=== PATIENT | male | born 1970 | race Caucasian/White ===

== ENCOUNTER 2016-09-16 20:10 | Emergency (ER) ==
--- NOTE | 2016-09-16 22:06 | PROVIDER DOCUMENTATION ---
HPI-Headache - General Source: patient - History of Present Illness-Headache Headache Location: reports: other (left eye) Quality of Pain: reports: aching Severity: reports: mild Onset/Duration: reports: this morning Timing: reports: still present Headache History: reports: history of migraines Any recent trauma/injury?: reports: none Headache severity at the maximum: mild Headache Exacerbated by:: reports: light Associated Symptoms: reports: headache, nausea Similar Symptoms Previously?: Yes Recently seen or treated by another doctor?: Yes <Ally Merino - Last Filed: 09/16/16 22:08> <Darrel Bush - Last Filed: 09/16/16 23:54> - General Chief Complaint: Headache Stated Complaint: HEADACHE Time Seen by Provider: 09/16/16 22:01 Allergies/Adverse Reactions: Patient Allergies Allergy/AdvReac Type Severity Reaction Status Date / Time codeine [Codeine] Allergy Mild HIVES Verified 09/11/16 05:14 ondansetron HCl * AdvReac VOMITING Verified 09/11/16 05:14 [From Zofran (as hydrochloride)] Home Medications: Gabapentin [Neurontin] 300 mg PO 4XDAY 09/23/15 Zonisamide 300 mg PO QPM 11/06/15 Mirtazapine [Remeron] 30 mg PO QHS 12/19/15 Alprazolam [Xanax Xr] 2 mg PO AC + HS 05/18/16 Lorazepam [Ativan] 1 mg PO DAILY PRN 05/21/16 Quetiapine Fumarate [Seroquel] 100 mg PO QHS 05/21/16 Isosorbide Dinitrate 30 mg PO QAM 08/20/16 Nitroglycerin [Nitrostat] 0.3 mg SL PRN PRN 08/20/16 Butalb/Acetaminophen/Caffeine [Fioricet 50-300-40 mg Capsule] 1 - 2 cap PO PRN PRN 09/05/16 Fluoxetine HCl [Prozac] 2 tab PO DAILY 09/07/16 - History of Present Illness-Headache Nature of Presenting Problem: 46 year old M presents to the ED with a cc of a headache with an onset of this morning. PT states that he took a Fiorecet this morning with no relief. PT states that he went to a walk in clinic and was given a shot of Tordol and Phenergan with no relief. Pt states that he took another Fiorecet with still no relief. PT c/o nausea and photophobia. (Ally Merino) Review of Systems - Adult - REVIEW OF SYSTEMS - ADULT Constitutional: denies: chills, fever Eyes: denies: blurred vision, double vision Ears, Nose, Mouth & Throat: reports: no symptoms reported Cardiovascular: denies: chest pain, palpitations Respiratory: denies: cough, shortness of breath Gastrointestinal: reports: nausea. denies: vomiting Genitourinary: reports: no symptoms reported Musculoskeletal: denies: muscle aches, muscle weakness Integumentary: reports: no symptoms reported Neurological: reports: headache/migraines. denies: dizziness/vertigo Psychiatric: reports: no symptoms reported Endocrine: reports: no symptoms reported Hematologic/Lymphatic: reports: no symptoms reported Allergic/Immunologic: reports: no symptoms reported All Other Systems: Reviewed and Negative <Ally Merino - Last Filed: 09/16/16 22:08> Past History - Adult - PAST MEDICAL HISTORY-ADULT Review of Records: reports: Nursing Assessment Review, Medications Reviewed Major Childhood Illnesses: reports: denies history Cardiovascular: reports: angina, CAD, HTN, hyperlipidemia Respiratory: reports: sleep apnea (but not wearing his C-pap) Gastrointestinal: reports: GERD Genitourinary: reports: kidney stones Musculoskeletal: reports: chronic pain (back), intervertebral disc disease Neurological: reports: headaches/migraines, Seizures/Epilepsy, TIA Psychiatric: reports: anxiety, depression, ptsd, other (panic attacks; somatization disorder; major depressive disorder) Endocrine/Immune: reports: Diabetes (diet controlled), thyroid disorder ( hypothyroid) Other Conditions: reports: MRSA Additional History: Frequent ER visits - PRIOR SURGERIES/PROCEDURES Surgical/Procedure History: reports: tonsillectomy, orthopedic (extremity) ( right should, left shoulder, right knee, right 2nd toe Sx), other (cardiac cath twice. arthroscopy ) - IMMUNIZATION STATUS Childhood Immunizations: See Nurse Assessment Flu Vaccine: See Nurse Assessment - FAMILY HISTORY Family History: reviewed, not pertinent - SOCIAL HISTORY Smoking: chew Substance Use: none/never Alcohol Use Frequency: never <Ally Merino - Last Filed: 09/16/16 22:08> Physical Exam- Neurological - Physical Exam-Neuro Initial Vital Signs Reviewed: Yes General Appearance: appears well, alert, no apparent distress Eye Exam: left eye: photophobia, bilateral eye: normal inspection, PERRL, EOMI Head Injury: no evidence of injury Respiratory: chest non-tender, lungs clear, normal breath sounds Cardiovascular: normal peripheral pulses, regular rate, rhythm, no edema Extremity: normal inspection bell maker Exam: normal hearing, normal speech, PERRL Motor/Sensory: no motor deficit, no sensory deficit, no pronator drift, negative Babinski's sign Neurologic: bell maker II-XII nml as tested, no motor/sensory deficits Integumentary: normal color, normal turgor, warm/dry Psych/Mental Status: AL, normal mood/affect, normal thought content, normal thought process, oriented x 3 <Ally Merino - Last Filed: 09/16/16 22:08> Progress <Ally eMrino - Last Filed: 09/16/16 22:08> - REASSESSMENT Reassessment #1 Time Reassessed: 23:53 Status: improving <Darrel Bush - Last Filed: 09/16/16 23:54> - PLAN OF CARE/RESULTS Progress/Plan/Lab Results: Orders Category Date Time Status 0.9% Sodium Chloride Inj [Ns] 50 ml Med 09/16/16 22:32 Discontinued .ROUTE As Directed 0.9% Sodium Chloride Inj [Ns] 500 ml Med 09/16/16 22:07 Discontinued IV 999 mls/hr Chlorpromazine [Thorazine] 25 mg Med 09/16/16 23:02 Discontinued 0.9% Sodium Chloride Inj [Ns] 25 ml IV NOW Diphenhydramine [Benadryl] Med 09/16/16 22:07 Discontinued 25 mg IV NOW ONE Hydromorphone [Dilaudid] Med 09/16/16 23:51 Discontinued 1 mg IV NOW ONE Ketorolac [Toradol] Med 09/16/16 22:07 Discontinued 30 mg IV NOW ONE Prochlorperazine [Compazine] Med 09/16/16 22:07 Discontinued 10 mg IV NOW ONE Vital Signs Temp Pulse Resp BP Pulse Ox 09/16/16 20:28 96.0 F L 96 H 18 145/94 99 codeine [Codeine] Allergy (Mild, Verified 09/11/16 05:14) HIVES ondansetron HCl * [From Zofran (as hydrochloride)] Adverse Reaction (Verified 05:14) VOMITING Gabapentin [Neurontin] 300 mg PO 4XDAY 09/23/15 Zonisamide 300 mg PO QPM 11/06/15 Mirtazapine [Remeron] 30 mg PO QHS 12/19/15 Alprazolam [Xanax Xr] 2 mg PO AC + HS 05/18/16 Lorazepam [Ativan] 1 mg PO DAILY PRN 05/21/16 Quetiapine Fumarate [Seroquel] 100 mg PO QHS 05/21/16 Isosorbide Dinitrate 30 mg PO QAM 08/20/16 Nitroglycerin [Nitrostat] 0.3 mg SL PRN PRN 08/20/16 Butalb/Acetaminophen/Caffeine [Fioricet 50-300-40 mg Capsule] 1 - 2 cap PO PRN PRN 09/05/16 Fluoxetine HCl [Prozac] 2 tab PO DAILY 09/07/16 Ketorolac [Toradol] 10 mg PO Q6H PRN PRN #7 tablet 09/09/16 Promethazine [Phenergan] 25 mg PO Q6H PRN PRN #20 tablet 09/09/16 Sucralfate [Carafate Liquid] 1 tbs PO Q6HR PRN #8 oz 09/10/16 Lorazepam [Ativan] 0.5 mg PO BID #30 tablet 09/11/16 Potassium Chloride [K-Tab ER] 20 meq PO DAILY #30 tablet.er 09/11/16 (Darrel Bush) Departure <Ally Merino - Last Filed: 09/16/16 22:08> - Departure Time of Disposition Order: 23:53 Certified Medical Emergency: Emergent <Darrel Bush - Last Filed: 09/16/16 23:54> - Departure DIAGNOSIS: Migraine headache Disposition: HOME 01 Condition: Good Additional Instructions: ED Follow Up Instructions: You have been treated by a care provider in the Emergency Department. These instructions are being provided to you so you can have an understanding of how to care for yourself upon discharge. Upon discharge from the Emergency Department, you are responsible for making arrangements for follow-up care by a physician of your choice. Take all prescribed medications as directed. Return to the Emergency Department immediately for any new or worsening symptoms. You may call the Physician Referral phone number at [phone] to obtain a list of Physicians who are taking new patients. Attestation - Scribe Verification/Attestation Scribe:: Ally Merino Acting as Scribe for:: Darrel Bush Scribe documention review:: This chart was documented by a scribe and accurately reflects the service the provider performed and the decisions made by the provider. <Ally Merino - Last Filed: 09/16/16 22:08> Physician Attestation - Physician Attestation I, the provider, attest to the following statement:: Darrel Bush Physician documentation Attestation:: This documentation recorded by the scribe accurately reflects the service I personally performed and the decisions made by me. <Ally Merino - Last Filed: 09/16/16 22:08>
[2016-09-16] MEDS ORDERED: TORADOL IV ONE (22:07)
[2016-09-16] MEDS ORDERED: BENADRYL IV ONE (22:07)
[2016-09-16] MEDS ORDERED: COMPAZINE IV ONE (22:07)
[2016-09-16] MEDS ORDERED: NS 500 ML IV ONE (22:07)
[2016-09-16] MEDS ORDERED: NS 100 ML ONE (22:32)
[2016-09-16] MEDS ORDERED: THORAZINE 25 MG in NS 25 ML IV ONE (23:02)
[2016-09-16] MEDS ORDERED: DILAUDID IV ONE (23:51)
[2016-09-17] MEDS ORDERED: THORAZINE ONE (00:21)
[2016-09-17 00:25] VITALS: BP 132/87
== END 2016-09-17 00:30 | disposition home or self-care (01) ==
LOC: P.ED 20:10
DX: G43.909 Migraine, unspecified, not intractable, without status migrainosus (principal); R51 Headache; R11.0 Nausea; H53.149 Visual discomfort, unspecified; I20.9 Angina pectoris, unspecified; I25.10 Atherosclerotic heart disease of native coronary artery without angina pectoris; I10 Essential (primary) hypertension; E78.5 Hyperlipidemia, unspecified; G89.29 Other chronic pain; M54.9 Dorsalgia, unspecified; R56.9 Unspecified convulsions; E11.9 Type 2 diabetes mellitus without complications; F17.220 Nicotine dependence, chewing tobacco, uncomplicated; Z79.899 Other long term (current) drug therapy; Z87.442 Personal history of urinary calculi; Z86.73 Personal history of transient ischemic attack (TIA), and cerebral infarction without residual deficits; Z86.14 Personal history of Methicillin resistant Staphylococcus aureus infection
CPT/HCPCS: 96361; 96374; 96375; J0780; J1170; J1200; J1885; J3230; J7040

== ENCOUNTER 2016-09-18 18:12 | Emergency (ER) ==
[2016-09-18] MEDS ORDERED: COMPAZINE IV ONE (19:08)
[2016-09-18] MEDS ORDERED: BENADRYL IV ONE (19:09)
[2016-09-18] MEDS ORDERED: THORAZINE 25 MG in NS 25 ML IV ONE ×2 (19:09→19:57)
[2016-09-18] MEDS ORDERED: TORADOL IV ONE (19:09)
[2016-09-18] MEDS ORDERED: NS 500 ML IV ONE (19:10)
[2016-09-18] MEDS ORDERED: THORAZINE ONE (19:16)
--- NOTE | 2016-09-18 19:19 | PROVIDER DOCUMENTATION ---
HPI-Headache - General Chief Complaint: Headache Stated Complaint: MIGRAINE Time Seen by Provider: 09/18/16 19:05 Source: patient Allergies/Adverse Reactions: Patient Allergies Allergy/AdvReac Type Severity Reaction Status Date / Time codeine [Codeine] Allergy Mild HIVES Verified 09/11/16 05:14 ondansetron HCl * AdvReac VOMITING Verified 09/11/16 05:14 [From Zofran (as hydrochloride)] Home Medications: Gabapentin [Neurontin] 300 mg PO 4XDAY 09/23/15 Zonisamide 300 mg PO QPM 11/06/15 Mirtazapine [Remeron] 30 mg PO QHS 12/19/15 Alprazolam [Xanax Xr] 2 mg PO AC + HS 05/18/16 Lorazepam [Ativan] 1 mg PO DAILY PRN 05/21/16 Quetiapine Fumarate [Seroquel] 100 mg PO QHS 05/21/16 Isosorbide Dinitrate 30 mg PO QAM 08/20/16 Nitroglycerin [Nitrostat] 0.3 mg SL PRN PRN 08/20/16 Butalb/Acetaminophen/Caffeine [Fioricet 50-300-40 mg Capsule] 1 - 2 cap PO PRN PRN 09/05/16 Fluoxetine HCl [Prozac] 2 tab PO DAILY 09/07/16 - History of Present Illness-Headache Nature of Presenting Problem: 46 yo M presents to the ER with complaint of headache since his AM. Pt states the pain is behind his right eye and feels like an ice pick. Pt also complains of blurry vision and has a hx of headaches similar to these. Headache Location: reports: occipital (behind right eye) Quality of Pain: reports: sharp Severity: reports: mild Onset/Duration: reports: this afternoon Timing: reports: still present Headache Context: reports: nothing Headache History: reports: history of migraines Review of Systems - Adult - REVIEW OF SYSTEMS - ADULT Constitutional: denies: chills, fever Eyes: reports: no symptoms reported Ears, Nose, Mouth & Throat: reports: no symptoms reported Cardiovascular: denies: chest pain, palpitations Respiratory: denies: cough, shortness of breath Gastrointestinal: denies: abdominal pain, nausea, vomiting Genitourinary: reports: no symptoms reported Musculoskeletal: denies: back pain, neck pain Integumentary: reports: no symptoms reported Neurological: reports: no symptoms reported Psychiatric: reports: no symptoms reported Endocrine: reports: no symptoms reported Hematologic/Lymphatic: reports: no symptoms reported Allergic/Immunologic: reports: no symptoms reported All Other Systems: Reviewed and Negative Past History - Adult - PAST MEDICAL HISTORY-ADULT Review of Records: reports: Old Records Reviewed, Nursing Assessment Review, Medications Reviewed Major Childhood Illnesses: reports: denies history Cardiovascular: reports: angina, CAD, HTN, hyperlipidemia Respiratory: reports: sleep apnea (but not wearing his C-pap) Gastrointestinal: reports: GERD Obstetrical/Gynecological: reports: denies history Genitourinary: reports: kidney stones Musculoskeletal: reports: chronic pain (back), intervertebral disc disease Neurological: reports: headaches/migraines, Seizures/Epilepsy, TIA Psychiatric: reports: anxiety, depression, ptsd, other (panic attacks; somatization disorder; major depressive disorder) Endocrine/Immune: reports: Diabetes (diet controlled), thyroid disorder ( hypothyroid) Other Conditions: reports: MRSA Additional History: Frequent ER visits - PRIOR SURGERIES/PROCEDURES Surgical/Procedure History: reports: tonsillectomy, orthopedic (extremity) ( right should, left shoulder, right knee, right 2nd toe Sx), other (cardiac cath twice. arthroscopy ) - IMMUNIZATION STATUS Childhood Immunizations: See Nurse Assessment Flu Vaccine: See Nurse Assessment - FAMILY HISTORY Family History: reviewed, not pertinent Physical Exam- Neurological - Physical Exam-Neuro Initial Vital Signs Reviewed: Yes General Appearance: appears well, alert Eye Exam: right eye: photophobia HENMT: normocephalic/atraumatic, moist mucous membranes Head Injury: no evidence of injury Neck: non-tender, full range of motion Respiratory: chest non-tender, lungs clear Abdominal Exam: normal bowel sounds, soft Extremity: normal range of motion, normal gait Integumentary: normal color, normal turgor Progress - PLAN OF CARE/RESULTS Progress/Plan/Lab Results: Orders Category Date Time Status 0.9% Sodium Chloride Inj [Ns] 500 ml Med 09/18/16 19:10 Active IV 999 mls/hr Chlorpromazine [Thorazine] Med 09/18/16 19:16 Discontinued 50 mg .ROUTE .STK-MED ONE Chlorpromazine [Thorazine] 25 mg Med 09/18/16 19:09 Active 0.9% Sodium Chloride Inj [Ns] 25 ml IV NOW Diphenhydramine [Benadryl] Med 09/18/16 19:09 Discontinued 50 mg IV NOW ONE Ketorolac [Toradol] Med 09/18/16 19:09 Discontinued 30 mg IV NOW ONE Prochlorperazine [Compazine] Med 09/18/16 19:08 Discontinued 10 mg IV NOW ONE Vital Signs Temp Pulse Resp BP Pulse Ox 09/18/16 18:19 98.2 F 100 H 18 151/89 99 codeine [Codeine] Allergy (Mild, Verified 09/11/16 05:14) HIVES ondansetron HCl * [From Zofran (as hydrochloride)] Adverse Reaction (Verified 05:14) VOMITING Gabapentin [Neurontin] 300 mg PO 4XDAY 09/23/15 Zonisamide 300 mg PO QPM 11/06/15 Mirtazapine [Remeron] 30 mg PO QHS 12/19/15 Alprazolam [Xanax Xr] 2 mg PO AC + HS 05/18/16 Lorazepam [Ativan] 1 mg PO DAILY PRN 05/21/16 Quetiapine Fumarate [Seroquel] 100 mg PO QHS 05/21/16 Isosorbide Dinitrate 30 mg PO QAM 08/20/16 Nitroglycerin [Nitrostat] 0.3 mg SL PRN PRN 08/20/16 Butalb/Acetaminophen/Caffeine [Fioricet 50-300-40 mg Capsule] 1 - 2 cap PO PRN PRN 09/05/16 Fluoxetine HCl [Prozac] 2 tab PO DAILY 09/07/16 Ketorolac [Toradol] 10 mg PO Q6H PRN PRN #7 tablet 09/09/16 Promethazine [Phenergan] 25 mg PO Q6H PRN PRN #20 tablet 09/09/16 Sucralfate [Carafate Liquid] 1 tbs PO Q6HR PRN #8 oz 09/10/16 Lorazepam [Ativan] 0.5 mg PO BID #30 tablet 09/11/16 Potassium Chloride [K-Tab ER] 20 meq PO DAILY #30 tablet.er 09/11/16 Vital Signs Temp Pulse Resp BP Pulse Ox 09/18/16 18:19 98.2 F 100 H 18 151/89 99 codeine [Codeine] Allergy (Mild, Verified 09/11/16 05:14) HIVES ondansetron HCl * [From Zofran (as hydrochloride)] Adverse Reaction (Verified 05:14) VOMITING Gabapentin [Neurontin] 300 mg PO 4XDAY 09/23/15 Zonisamide 300 mg PO QPM 11/06/15 Mirtazapine [Remeron] 30 mg PO QHS 12/19/15 Alprazolam [Xanax Xr] 2 mg PO AC + HS 05/18/16 Lorazepam [Ativan] 1 mg PO DAILY PRN 05/21/16 Quetiapine Fumarate [Seroquel] 100 mg PO QHS 05/21/16 Isosorbide Dinitrate 30 mg PO QAM 08/20/16 Nitroglycerin [Nitrostat] 0.3 mg SL PRN PRN 08/20/16 Butalb/Acetaminophen/Caffeine [Fioricet 50-300-40 mg Capsule] 1 - 2 cap PO PRN PRN 09/05/16 Fluoxetine HCl [Prozac] 2 tab PO DAILY 09/07/16 Ketorolac [Toradol] 10 mg PO Q6H PRN PRN #7 tablet 09/09/16 Promethazine [Phenergan] 25 mg PO Q6H PRN PRN #20 tablet 09/09/16 Sucralfate [Carafate Liquid] 1 tbs PO Q6HR PRN #8 oz 09/10/16 Lorazepam [Ativan] 0.5 mg PO BID #30 tablet 09/11/16 Potassium Chloride [K-Tab ER] 20 meq PO DAILY #30 tablet.er 09/11/16 Departure - Departure Time of Disposition Order: 20:19 DIAGNOSIS: Migraine Qualifiers: Migraine type: unspecified Status migrainosus presence: without status migrainosus Intractability: not intractable Qualified Code(s): G43.909 - Migraine, unspecified, not intractable, without status migrainosus Disposition: HOME 01 Certified Medical Emergency: Emergent Condition: Good Additional Instructions: ED Follow Up Instructions: You have been treated by a care provider in the Emergency Department. These instructions are being provided to you so you can have an understanding of how to care for yourself upon discharge. Upon discharge from the Emergency Department, you are responsible for making arrangements for follow-up care by a physician of your choice. Take all prescribed medications as directed. Return to the Emergency Department immediately for any new or worsening symptoms. You may call the Physician Referral phone number at [phone] to obtain a list of Physicians who are taking new patients. Referrals: Araseli Andrade MD [Primary Care Provider] - Attestation - Scribe Verification/Attestation Scribe:: Noe Gorman Acting as Scribe for:: Darrel Bush Scribe documention review:: This chart was documented by a scribe and accurately reflects the service the provider performed and the decisions made by the provider.
[2016-09-18] MEDS ORDERED: NUBAIN IV ONE (20:19)
[2016-09-18 20:58] VITALS: BP 125/082
== END 2016-09-18 20:54 | disposition home or self-care (01) ==
LOC: P.ED 18:12
DX: G43.909 Migraine, unspecified, not intractable, without status migrainosus (principal); R51 Headache; H53.8 Other visual disturbances; I20.9 Angina pectoris, unspecified; I25.10 Atherosclerotic heart disease of native coronary artery without angina pectoris; I10 Essential (primary) hypertension; E78.5 Hyperlipidemia, unspecified; G89.29 Other chronic pain; M54.9 Dorsalgia, unspecified; R56.9 Unspecified convulsions; E11.9 Type 2 diabetes mellitus without complications; F41.9 Anxiety disorder, unspecified; F32.9 Major depressive disorder, single episode, unspecified; F43.10 Post-traumatic stress disorder, unspecified; Z79.899 Other long term (current) drug therapy; Z86.73 Personal history of transient ischemic attack (TIA), and cerebral infarction without residual deficits; Z86.14 Personal history of Methicillin resistant Staphylococcus aureus infection
CPT/HCPCS: 96361; 96374; 96375; 96376; J0780; J1200; J1885; J2300; J3230; J7040

== ENCOUNTER 2016-11-11 11:33 | Emergency (ER) ==
[2016-11-11 11:38] VITALS: BP 150/99
[2016-11-11] MEDS ORDERED: TORADOL IM ONE (11:54)
[2016-11-11] MEDS ORDERED: NORFLEX IM ONE (11:54)
--- NOTE | 2016-11-11 11:59 | PROVIDER DOCUMENTATION ---
HPI-Musculoskeletal Pain/Inj - GENERAL Chief Complaint: Back Pain Stated Complaint: "I WRENCHED MY BACK" Time Seen by Provider: 11/11/16 11:55 Source: patient Unable to obtain history due to:: urgency - HX OF PRESENT ILLNESS-MUSKULOSKELTAL Nature of Presenting Problem: 46 yom presents with lower back pain. Pt states, "My father was admitted to Hospital on Tuesday. I have been helping the nurses lift him and roll him to take care of him." Pt denies any loss of bowel or bladder. Pt has numbness to Right lower extremity with the pain. SI Joint pain on palpation. Quality of Pain: reports: aching Severity in ED: moderate Onset/Duration: abrupt Timing: still present, getting worse Modifying Factors: improves with: nothing Any recent injury?: No Similar Symptoms Previously?: No Recently seen or treated by another doctor?: No Review of Systems - Adult - REVIEW OF SYSTEMS - ADULT Constitutional: reports: see HPI. denies: no symptoms reported, chills, fever, fatique, night sweats, weight gain, weight loss, other Eyes: reports: no symptoms reported. denies: see HPI, discharge, dry eyes, decreased vision, blurred vision, double vision, eye pain, redness, other Ears, Nose, Mouth & Throat: reports: no symptoms reported. denies: see HPI, ear discharge, ear pain, hearing loss, tinnitus, epistaxis, sinus problem, nose pain, loose teeth, mouth/dental pain, mouth swelling, hoarseness, throat pain, throat swelling, other Cardiovascular: reports: no symptoms reported. denies: see HPI, chest pain, edema, heart murmur, irregular heart rate, orthopnea, palpitations, poor circulation, PND, syncope, other Respiratory: reports: no symptoms reported. denies: see HPI, chronic cough, cough, dyspnea on exertion, excessive sputum production, hemoptysis, pleurisy, shortness of breath, wheezing, other Gastrointestinal: reports: no symptoms reported. denies: see HPI, abdominal pain, hematemesis, constipation, diarrhea, difficulty swallowing, frequent heartburn, nausea, poor appetite, rectal bleeding, vomiting, other Genitourinary: reports: no symptoms reported. denies: see HPI, dysuria, discharge, frequency, flank pain, frequent UTI's, hematuria, hesitency, incontinence, urinary retention, urgency, other Musculoskeletal: reports: see HPI, back pain. denies: no symptoms reported, bone pain, frequent leg cramps, joint pain, joint swelling, muscle aches, muscle weakness, neck pain, other Integumentary: reports: no symptoms reported. denies: see HPI, hives, hair loss , itching, mole changes, nail changes, rash, skin sores/ulcer, skin thickening, other Neurological: reports: no symptoms reported. denies: see HPI, ataxia, dizziness /vertigo, headache/migraines, loss of balance, numbness, paresthesia, seizure, slurred speech, syncope, tremors, other Psychiatric: reports: no symptoms reported. denies: see HPI, anxiety, anti- depressant use, alcohol/drug dependence, depression, emotional problems, insomnia, panic attacks, suicidal thoughts, other All Other Systems: Reviewed and Negative Past History - Adult - PAST MEDICAL HISTORY-ADULT Review of Records: reports: Old Records Reviewed, Nursing Assessment Review, Medications Reviewed, Social history reviewed & non-contributory. Major Childhood Illnesses: reports: denies history Cardiovascular: reports: angina, CAD, HTN, hyperlipidemia Respiratory: reports: sleep apnea (but not wearing his C-pap) Gastrointestinal: reports: GERD Obstetrical/Gynecological: reports: denies history Genitourinary: reports: kidney stones Musculoskeletal: reports: chronic pain (back), intervertebral disc disease Neurological: reports: headaches/migraines, Seizures/Epilepsy, TIA Psychiatric: reports: anxiety, depression, ptsd, other (panic attacks; somatization disorder; major depressive disorder) Endocrine/Immune: reports: Diabetes (diet controlled), thyroid disorder ( hypothyroid) Other Conditions: reports: MRSA Additional History: Frequent ER visits - PRIOR SURGERIES/PROCEDURES Surgical/Procedure History: reports: tonsillectomy, orthopedic (extremity) ( right should, left shoulder, right knee, right 2nd toe Sx), other (cardiac cath twice. arthroscopy ) - IMMUNIZATION STATUS Childhood Immunizations: See Nurse Assessment Flu Vaccine: See Nurse Assessment - FAMILY HISTORY Family History: reviewed, not pertinent Physical Exam-Injury Related - Physical Exam-Injury Related Initial Vital Signs Reviewed: Yes General Appearance: appears well, alert, no apparent distress. negative: mild distress, moderate distress, severe distress, cachetic, obese, thin, anxious, lethargic, slow to respond, obtunded, combative, other Immobilization?: negative: backboard, C-collar, applied in ED, applied [place] [place] Eyes: PERRL/EOMI, pink conjunctivae. negative: fundi clear, no AV nicking, anisocoria, conjuctival exudate, EOM palsy, meningismus, pale conjunctivae, photophobia, sclera injected, scleral icterus, subconjunctival hemorrhage, sunken eyes, other Head, Ears, Nose, Mouth & Throat: normocephalic/atraumatic, moist mucous membranes, normal ENT inspection, TMs normal, pharynx normal. negative: angioedema, dental decay, hearing deficit, pharyngeal erythema, tonsillar exudate, TM abnormal, TM obscurred by cerumen, frontal tenderness, maxillary tenderness, other Neck: non-tender, full range of motion, supple, normal inspection. negative: pain with axial compression, Brudzinski's sign, carotid bruit, C-spine tenderness, decresed ROM, ecchymosis, limited range of motion, lymphadenopathy, muscle spasm, nexus criteria negative, pain on movement, subcutaneous emphysema , swelling, trachial deviation, tender lateral, tender midline, thyromegaly, vertebral point tenderness, other Respiratory: chest non-tender, lungs clear, normal breath sounds, no pleuratic chest pain, no respiratory distress, no accessory muscle use. negative: respiratory distress, decreased breath sounds, accessory muscle use, crackles, rales, rhonchi, stridor, wheezing, dull on percussion, prolonged expiration, pain on inspiration, pleural rub, retractions, splinting, decreased rate, increased rate, crepitus, ecchymosis, flail chest, palpable fracture, paradoxical movements, rib tenderness, seat belt bruising, tenderness, other Cardiovascular: normal peripheral pulses, regular rate, rhythm, no edema, no gallop, no JVD, no murmur. negative: JVD, bradycardia, tachycardia, diastolic murmur, systolic murmur, gallop/S3, gallop/S4, extra beats, friction rub, irregularly irregular, PMI displaced laterally, other Abdominal Exam: normal bowel sounds, non tender, soft, no organomegaly, no pulsatile mass. negative: abdominal bruit, abnormal bowel sounds, distended, guarding, rigid, rebound, tenderness, hernia, mass, hepatomegaly, spleenomegaly , McBurney's point tenderness, Luis's sign, obturator sign, prominent aortic pulsations, psoas, Rovsing's sign, other Male Genitalia: deferred Lymphatic: no adenopathy. negative: axilla node tender, cervical node tenderness, inguinal node tender, enlargement, striations, streaking, other Back Exam: normal inspection, no CVA tenderness, muscle spasm, vertebral tenderness. negative: no vertebral tenderness, CVA tenderness, decreased range of motion, ecchymosis, kyphosis, lordosis, scoliosis, swelling, other Extremity: normal range of motion, non-tender, normal gait, normal inspection, no pedal edema, no calf tenderness, normal capillary refill Progress - PLAN OF CARE/RESULTS Progress/Plan/Lab Results: Orders Category Date Time Status Ketorolac [Toradol] Med 11/11/16 11:54 Discontinued 60 mg IM NOW ONE Orphenadrine [Norflex] Med 11/11/16 11:54 Discontinued 60 mg IM NOW ONE Vital Signs Temp Pulse Resp BP Pulse Ox 11/11/16 11:33 98 F 96 H 18 150/99 100 codeine [Codeine] Allergy (Mild, Verified 09/11/16 05:14) HIVES ondansetron HCl * [From Zofran (as hydrochloride)] Adverse Reaction (Verified 05:14) VOMITING Gabapentin [Neurontin] 300 mg PO 4XDAY 09/23/15 Zonisamide 300 mg PO QPM 11/06/15 Mirtazapine [Remeron] 30 mg PO QHS 12/19/15 Alprazolam [Xanax Xr] 2 mg PO AC + HS 05/18/16 Lorazepam [Ativan] 1 mg PO DAILY PRN 05/21/16 Quetiapine Fumarate [Seroquel] 100 mg PO QHS 05/21/16 Isosorbide Dinitrate 30 mg PO QAM 08/20/16 Nitroglycerin [Nitrostat] 0.3 mg SL PRN PRN 08/20/16 Butalb/Acetaminophen/Caffeine [Fioricet 50-300-40 mg Capsule] 1 - 2 cap PO PRN PRN 09/05/16 Fluoxetine HCl [Prozac] 2 tab PO DAILY 09/07/16 Ketorolac [Toradol] 10 mg PO Q6H PRN PRN #7 tablet 09/09/16 Promethazine [Phenergan] 25 mg PO Q6H PRN PRN #20 tablet 09/09/16 Sucralfate [Carafate Liquid] 1 tbs PO Q6HR PRN #8 oz 09/10/16 Lorazepam [Ativan] 0.5 mg PO BID #30 tablet 09/11/16 Potassium Chloride [K-Tab ER] 20 meq PO DAILY #30 tablet.er 09/11/16 Acetaminophen/Diphenhydramine [Percogesic 325-12.5 mg Tablet] 1 each PO BID #14 tablet 09/28/16 Cyclobenzaprine [Flexeril] 10 mg PO TID PRN #10 tablet 11/11/16 Ketorolac [Toradol] 10 mg PO Q6H PRN PRN #14 tablet 11/11/16 TYPE 2 DIABETES MELLITUS WITHOUT COMPLICATIONS (11/11/16) HYPERLIPIDEMIA, UNSPECIFIED (11/11/16) OTHER CHRONIC PAIN (11/11/16) ESSENTIAL (PRIMARY) HYPERTENSION (11/11/16) ATHSCL HEART DISEASE OF [place] CORONARY ARTERY W/O ANG PCTRS (11/11/16) SACROCOCCYGEAL DISORDERS, NOT ELSEWHERE CLASSIFIED (11/11/16) LUMBAGO WITH SCIATICA, RIGHT SIDE (11/11/16) LOW BACK PAIN (11/11/16) PAIN IN RIGHT LEG (11/11/16) ANESTHESIA OF SKIN (11/11/16) PERSONAL HISTORY OF METHICILLIN RESIS STAPH INFECTION (11/11/16) PRSNL HX OF TIA (TIA), AND CEREB INFRC W/O RESID DEFICITS (11/11/16) PERSONAL HISTORY OF URINARY CALCULI (11/11/16) Departure - Departure Time of Disposition Order: 11:56 DIAGNOSIS: Low back pain Qualifiers: Chronicity: acute Back pain laterality: unspecified Sciatica presence: with sciatica Sciatica laterality: sciatica of right side Qualified Code(s): M54.41 - Lumbago with sciatica, right side Disposition: HOME 01 Certified Medical Emergency: Emergent Condition: Stable Additional Instructions: ED Follow Up Instructions: You have been treated by a care provider in the Emergency Department. These instructions are being provided to you so you can have an understanding of how to care for yourself upon discharge. Upon discharge from the Emergency Department, you are responsible for making arrangements for follow-up care by a physician of your choice. Take all prescribed medications as directed. Return to the Emergency Department immediately for any new or worsening symptoms. You may call the Physician Referral phone number at [phone] to obtain a list of Physicians who are taking new patients. Prescriptions: Cyclobenzaprine [Flexeril] 10 mg PO TID PRN #10 tablet PRN Reason: muscle spasms Ketorolac [Toradol] 10 mg PO Q6H PRN PRN #14 tablet PRN Reason: Pain Referrals: Araseli Andrade MD [Primary Care Provider] - Forms: Return to School/Parent Work Instructions: Cyclobenzaprine tablets, Back Pain, Adult, Ketorolac tablets Attestation - Physician/ LOLY Attestation Patient care was provided by Advanced Practice Provider:: Yes Advanced Practice Provider:: Shaheen Ornelas Advanced Practice Provider documentation review:: The Mid-level provider documentation, treatment plan and medical decision making was reviewed by the physician who agrees with all treatment and medical decision making by the P. Physician Attestation - Physician Attestation I, the provider, attest to the following statement:: Shaheen Ornelas Physician documentation Attestation:: This documentation recorded by the scribe accurately reflects the service I personally performed and the decisions made by me.
== END 2016-11-11 12:38 | disposition home or self-care (01) ==
LOC: P.ED 11:33
DX: M54.41 Lumbago with sciatica, right side (principal); R20.0 Anesthesia of skin; M79.604 Pain in right leg; M53.3 Sacrococcygeal disorders, not elsewhere classified; I25.10 Atherosclerotic heart disease of native coronary artery without angina pectoris; I10 Essential (primary) hypertension; E78.5 Hyperlipidemia, unspecified; G89.29 Other chronic pain; E11.9 Type 2 diabetes mellitus without complications; Z87.442 Personal history of urinary calculi; Z86.73 Personal history of transient ischemic attack (TIA), and cerebral infarction without residual deficits; Z86.14 Personal history of Methicillin resistant Staphylococcus aureus infection
CPT/HCPCS: 96372; J1885; J2360

== ENCOUNTER 2016-11-13 19:28 | Emergency (ER) ==
[2016-11-13] MEDS ORDERED: ATIVAN IM ONE (19:51)
--- NOTE | 2016-11-13 19:57 | PROVIDER DOCUMENTATION ---
HPI-General Adult - General Chief Complaint: Seizure Stated Complaint: I feel like Im going to have a seizure Time Seen by Provider: 11/13/16 19:52 Source: patient Allergies/Adverse Reactions: Patient Allergies Allergy/AdvReac Type Severity Reaction Status Date / Time codeine [Codeine] Allergy Mild HIVES Verified 09/11/16 05:14 ondansetron HCl * AdvReac VOMITING Verified 09/11/16 05:14 [From Zofran (as hydrochloride)] Home Medications: Home Medication List Medication Instructions Recorded Confirmed Last Taken Type Gabapentin [Neurontin] 300 mg PO 4XDAY 09/23/15 09/11/16 1 Day Ago History Zonisamide 300 mg PO QPM 11/06/15 09/11/16 1 Day Ago History Mirtazapine [Remeron] 30 mg PO QHS 12/19/15 09/11/16 1 Day Ago History Alprazolam [Xanax Xr] 2 mg PO AC + HS 05/18/16 09/11/16 1 Day Ago History Lorazepam [Ativan] 1 mg PO DAILY PRN 05/21/16 09/11/16 1 Day Ago History Quetiapine Fumarate [Seroquel] 100 mg PO QHS 05/21/16 09/11/16 1 Day Ago History Isosorbide Dinitrate 30 mg PO QAM 08/20/16 09/11/16 1 Day Ago History Nitroglycerin [Nitrostat] 0.3 mg SL PRN PRN 08/20/16 09/11/16 1 Day Ago History Butalb/Acetaminophen/Caffeine 1 - 2 cap PO PRN PRN 09/05/16 09/11/16 1 Day Ago History [Fioricet 50-300-40 mg Capsule] Fluoxetine HCl [Prozac] 2 tab PO DAILY 09/07/16 09/11/16 1 Day Ago History Ketorolac [Toradol] 10 mg PO Q6H PRN PRN #7 tablet 09/09/16 09/11/16 Unknown Rx Promethazine [Phenergan] 25 mg PO Q6H PRN PRN #20 tablet 09/09/16 09/11/16 Unknown Rx Sucralfate [Carafate Liquid] 1 tbs PO Q6HR PRN #8 oz 09/10/16 09/11/16 Unknown Rx Lorazepam [Ativan] 0.5 mg PO BID #30 tablet 09/11/16 Unknown Rx Potassium Chloride [K-Tab ER] 20 meq PO DAILY #30 tablet.er 09/11/16 Unknown Rx Acetaminophen/Diphenhydramine 1 each PO BID #14 tablet 09/28/16 Unknown Rx [Percogesic 325-12.5 mg Tablet] Cyclobenzaprine [Flexeril] 10 mg PO TID PRN #10 tablet 11/11/16 Unknown Rx Ketorolac [Toradol] 10 mg PO Q6H PRN PRN #14 tablet 11/11/16 Unknown Rx - History of Present Illness -Gen Adult Nature of Presenting Problems: 46 YOWM PRESENTS TO ED WITH C/O PT STATES HE IS TRYING NOT TO HAVE A SEIZURE. PT STATES WHEN HE HAS SEIZURES HE SMELLS BURNT TOAST. 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 PT STATES THERE WAS NO BURNT TOAST IN THE HOUSE. PT DENIES ANY SEIZURE ACTIVITY TODAY. Location of Pain/Injury: reports: none Pain Radiation: reports: no radiation Quality of Pain: reports: none Onset/Duration: reports: 1 hour ago Timing: reports: still present Context/Activities at Onset: reports: light activity Modifying Factors: improves with: nothing Similar Symptoms Previously?: No Recently seen or treated by another doctor?: No Review of Systems - Adult - REVIEW OF SYSTEMS - ADULT Constitutional: denies: chills, fever Eyes: reports: no symptoms reported Ears, Nose, Mouth & Throat: reports: no symptoms reported Cardiovascular: denies: chest pain, palpitations, syncope Respiratory: denies: cough, shortness of breath, wheezing Gastrointestinal: denies: abdominal pain, diarrhea, nausea, vomiting Genitourinary: reports: no symptoms reported Musculoskeletal: denies: back pain, neck pain Integumentary: reports: no symptoms reported Neurological: denies: dizziness/vertigo, headache/migraines, syncope Psychiatric: reports: no symptoms reported Endocrine: reports: no symptoms reported Hematologic/Lymphatic: reports: no symptoms reported Allergic/Immunologic: reports: no symptoms reported All Other Systems: Reviewed and Negative Past History - Adult - PAST MEDICAL HISTORY-ADULT Review of Records: reports: Nursing Assessment Review, Medications Reviewed Cardiovascular: reports: angina, CAD, HTN, hyperlipidemia Respiratory: reports: sleep apnea (but not wearing his C-pap) Gastrointestinal: reports: GERD Genitourinary: reports: kidney stones Musculoskeletal: reports: chronic pain (back), intervertebral disc disease Neurological: reports: headaches/migraines, Seizures/Epilepsy, TIA Psychiatric: reports: anxiety, depression, ptsd, other (panic attacks; somatization disorder; major depressive disorder) Endocrine/Immune: reports: Diabetes (diet controlled), thyroid disorder ( hypothyroid) Other Conditions: reports: MRSA Additional History: Frequent ER visits - PRIOR SURGERIES/PROCEDURES Surgical/Procedure History: reports: tonsillectomy, orthopedic (extremity) ( right should, left shoulder, right knee, right 2nd toe Sx), other (cardiac cath twice. arthroscopy ) - IMMUNIZATION STATUS Childhood Immunizations: See Nurse Assessment Flu Vaccine: See Nurse Assessment - FAMILY HISTORY Family History: reviewed, not pertinent - SOCIAL HISTORY Smoking: denies Substance Use: denies Alcohol Use Frequency: never Living Situation: family Physical Exam-General - CONSTITUTIONAL General Appearance: alert, mild distress - EYES Eyes: PERRL/EOMI, pink conjunctivae - HEAD, EARS, NOSE, MOUTH & THROAT HENMT: normocephalic/atraumatic, moist mucous membranes - NECK Neck: non-tender, full range of motion, supple - RESPIRATORY Respiratory: chest non-tender, lungs clear, normal breath sounds - CARDIOVASCULAR Cardiovascular: normal peripheral pulses, regular rate, rhythm - GASTROINTESTINAL (ABDOMEN) Abdominal Exam: normal bowel sounds, non tender, soft - LYMPHATIC Lymphatic: no adenopathy - MUSCULOSKELETAL Back Exam: normal inspection, no CVA tenderness, no vertebral tenderness Extremity: normal range of motion, non-tender - SKIN Integumentary: normal color, normal turgor, warm/dry - NEUROLOGIC Neurologic: grossly normal - PSYCHIATRIC Psych/Mental Status: oriented x 3 Attestation - Scribe Verification/Attestation Scribe:: William Mccarthy Acting as Scribe for:: Joesph Fontana Scribe documention review:: This chart was documented by a scribe and accurately reflects the service the provider performed and the decisions made by the provider.
[2016-11-13] MEDS ORDERED: G.I. COCKTAIL PO ONE (20:59)
[2016-11-13 22:13] VITALS: BP 171/103
== END 2016-11-13 22:12 | disposition home or self-care (01) ==
LOC: P.ED 19:28
DX: R26.81 Unsteadiness on feet (principal); I20.9 Angina pectoris, unspecified; I25.10 Atherosclerotic heart disease of native coronary artery without angina pectoris; I10 Essential (primary) hypertension; E78.5 Hyperlipidemia, unspecified; G89.29 Other chronic pain; M54.9 Dorsalgia, unspecified; R56.9 Unspecified convulsions; E11.9 Type 2 diabetes mellitus without complications; F41.9 Anxiety disorder, unspecified; F32.9 Major depressive disorder, single episode, unspecified; F43.10 Post-traumatic stress disorder, unspecified; Z79.899 Other long term (current) drug therapy; Z86.73 Personal history of transient ischemic attack (TIA), and cerebral infarction without residual deficits; Z86.14 Personal history of Methicillin resistant Staphylococcus aureus infection
CPT/HCPCS: 96372; J2060

== ENCOUNTER 2016-11-22 12:53 | Emergency (ER) ==
[2016-11-22] MEDS ORDERED: ATIVAN IM ONE (14:27)
[2016-11-22] MEDS ORDERED: BENADRYL PO ONE (14:28)
[2016-11-22] MEDS ORDERED: PHENERGAN PO ONE (14:28)
[2016-11-22] MEDS ORDERED: TORADOL IM ONE (14:28)
--- NOTE | 2016-11-22 14:35 | PROVIDER DOCUMENTATION ---
HPI-Headache - General Source: patient - History of Present Illness-Headache Headache Location: reports: global Quality of Pain: reports: burning Severity: reports: mild Onset/Duration: reports: just prior to arrival Timing: reports: still present Headache Context: reports: nothing Headache History: reports: frequent headaches Any recent trauma/injury?: reports: none Headache severity at the maximum: mild Headache Exacerbated by:: reports: nothing Modifying Factors: improves with: nothing Associated Symptoms: reports: denies symptoms Similar Symptoms Previously?: Yes Recently seen or treated by another doctor?: Yes <Tania Gerber - Last Filed: 11/22/16 14:31> <Jose Manuel Glover - Last Filed: 11/22/16 14:47> - General Chief Complaint: Anxiety Stated Complaint: HEADACHE/CHEST PAIN/ANXIETY Time Seen by Provider: 11/22/16 14:21 Allergies/Adverse Reactions: Patient Allergies Allergy/AdvReac Type Severity Reaction Status Date / Time codeine [Codeine] Allergy Mild HIVES Verified 09/11/16 05:14 ondansetron HCl * AdvReac VOMITING Verified 09/11/16 05:14 [From Zofran (as hydrochloride)] - History of Present Illness-Headache Nature of Presenting Problem: Pt is 46 y/o M presents to the ED with QUIROS. Pt states his head feels like it is burning. Pt is a frequent Pt in the ED. Pt states symptoms started [employer]. (Tania Gerber) Review of Systems - Adult - REVIEW OF SYSTEMS - ADULT Constitutional: reports: no symptoms reported Eyes: reports: no symptoms reported Ears, Nose, Mouth & Throat: reports: no symptoms reported Cardiovascular: reports: irregular heart rate (tachy). denies: chest pain, heart murmur Respiratory: reports: no symptoms reported Gastrointestinal: reports: no symptoms reported Genitourinary: reports: no symptoms reported Musculoskeletal: reports: no symptoms reported Integumentary: reports: no symptoms reported Neurological: reports: headache/migraines (QUIROS). denies: loss of balance, paresthesia, syncope Psychiatric: reports: no symptoms reported Endocrine: reports: no symptoms reported Hematologic/Lymphatic: reports: no symptoms reported Allergic/Immunologic: reports: no symptoms reported All Other Systems: Reviewed and Negative <Tania Gerber - Last Filed: 11/22/16 14:31> Past History - Adult - PAST MEDICAL HISTORY-ADULT Review of Records: reports: Nursing Assessment Review, Medications Reviewed, Social history reviewed & non-contributory. Major Childhood Illnesses: reports: denies history Cardiovascular: reports: angina, CAD, HTN, hyperlipidemia Respiratory: reports: sleep apnea (but not wearing his C-pap) Gastrointestinal: reports: GERD Obstetrical/Gynecological: reports: denies history Genitourinary: reports: kidney stones Musculoskeletal: reports: chronic pain (back), intervertebral disc disease Neurological: reports: headaches/migraines, Seizures/Epilepsy, TIA Psychiatric: reports: anxiety, depression, ptsd, other (panic attacks; somatization disorder; major depressive disorder) Endocrine/Immune: reports: Diabetes (diet controlled), thyroid disorder ( hypothyroid) Other Conditions: reports: MRSA Additional History: Frequent ER visits - PRIOR SURGERIES/PROCEDURES Surgical/Procedure History: reports: tonsillectomy, orthopedic (extremity) ( right should, left shoulder, right knee, right 2nd toe Sx), other (cardiac cath twice. arthroscopy ) - IMMUNIZATION STATUS Childhood Immunizations: See Nurse Assessment Flu Vaccine: See Nurse Assessment - FAMILY HISTORY Family History: reviewed, not pertinent - SOCIAL HISTORY Smoking: denies Substance Use: denies Living Situation: family <BuzzTania - Last Filed: 11/22/16 14:31> Physical Exam- Neurological - Physical Exam-Neuro Initial Vital Signs Reviewed: Yes General Appearance: appears well, alert, no apparent distress Eye Exam: bilateral eye: normal inspection, PERRL, EOMI HENMT: normocephalic/atraumatic, moist mucous membranes, normal ENT inspection, TMs normal, pharynx normal Head Injury: no evidence of injury Neck: non-tender, full range of motion, supple, normal inspection Respiratory: chest non-tender, lungs clear, normal breath sounds, no pleuratic chest pain, no respiratory distress, no accessory muscle use Cardiovascular: normal peripheral pulses, no edema, no gallop, no JVD, no murmur , tachycardia Abdominal Exam: normal bowel sounds, non tender, soft, no organomegaly, no pulsatile mass Lymphatic: no adenopathy Extremity: normal range of motion, non-tender, normal gait, normal inspection, no pedal edema, no calf tenderness, 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 Exam: normal hearing, normal speech, PERRL Coordination/Gait: normal finger to nose, normal gait Motor/Sensory: no motor deficit, no sensory deficit, no pronator drift Neurologic: grossly normal Integumentary: normal color, normal turgor, warm/dry Psych/Mental Status: normal mood/affect, oriented x 3, anxious <Tania Gerber - Last Filed: 11/22/16 14:31> Progress <Tania Gerber - Last Filed: 11/22/16 14:31> <Jose Manuel Glover - Last Filed: 11/22/16 14:47> - PLAN OF CARE/RESULTS Progress/Plan/Lab Results: Orders Category Date Time Status Diphenhydramine [Benadryl] Med 11/22/16 14:28 Discontinued 50 mg PO NOW ONE Ketorolac [Toradol] Med 11/22/16 14:28 Discontinued 60 mg IM NOW ONE Lorazepam [Ativan] Med 11/22/16 14:27 Discontinued 2 mg IM NOW ONE Promethazine [Phenergan] Med 11/22/16 14:28 Discontinued 25 mg PO NOW ONE Vital Signs - 24 hr 11/22/16 13:12 Temperature 98 F Pulse Rate 106 H Respiratory 20 Rate Blood Pressure 138/81 O2 Sat by Pulse 99 Oximetry (Tania Gerber) Discussed results and plan of care with patient. Patient agrees with plan and verbalizes understanding. Vital Signs Temp Pulse Resp BP Pulse Ox 11/22/16 13:12 98 F 106 H 20 138/81 99 codeine [Codeine] Allergy (Mild, Verified 09/11/16 05:14) HIVES ondansetron HCl * [From Zofran (as hydrochloride)] Adverse Reaction (Verified 05:14) VOMITING Orders Category Date Time Status Diphenhydramine [Benadryl] Med 11/22/16 14:28 Discontinued 50 mg PO NOW ONE Ketorolac [Toradol] Med 11/22/16 14:28 Discontinued 60 mg IM NOW ONE Lorazepam [Ativan] Med 11/22/16 14:27 Discontinued 2 mg IM NOW ONE Promethazine [Phenergan] Med 11/22/16 14:28 Discontinued 25 mg PO NOW ONE (Jose Manuel Glover) Departure <Tania Gerber - Last Filed: 11/22/16 14:31> - Departure Time of Disposition Order: 14:46 Certified Medical Emergency: Emergent <Jose Manuel Glover - Last Filed: 11/22/16 14:47> - Departure DIAGNOSIS: Chronic anxiety Migraine headache Qualifiers: Migraine type: unspecified Status migrainosus presence: without status migrainosus Intractability: not intractable Qualified Code(s): G43.909 - Migraine, unspecified, not intractable, without status migrainosus Disposition: HOME 01 Condition: Stable Additional Instructions: Follow up with primary care physician Take medications as directed Return to ED for any concerns or worsening of symptoms ED Follow Up Instructions: You have been treated by a care provider in the Emergency Department. These instructions are being provided to you so you can have an understanding of how to care for yourself upon discharge. Upon discharge from the Emergency Department, you are responsible for making arrangements for follow-up care by a physician of your choice. Take all prescribed medications as directed. Return to the Emergency Department immediately for any new or worsening symptoms. You may call the Physician Referral phone number at [phone] to obtain a list of Physicians who are taking new patients. Attestation - Scribe Verification/Attestation Scribe:: Tania Gerber Acting as Scribe for:: Jose Manuel Glover Scribe documention review:: This chart was documented by a scribe and accurately reflects the service the provider performed and the decisions made by the provider. <Tania Gerber - Last Filed: 11/22/16 14:31> - Physician/ LOLY Attestation Patient care was provided by Advanced Practice Provider:: Yes Advanced Practice Provider:: Jose Manuel Glover Advanced Practice Provider documentation review:: The Mid-level provider documentation, treatment plan and medical decision making was reviewed by the physician who agrees with all treatment and medical decision making by the P. <Jose Manuel Glover - Last Filed: 11/22/16 14:47> Physician Attestation
[2016-11-22 15:37] VITALS: BP 144/71
== END 2016-11-22 15:37 | disposition home or self-care (01) ==
LOC: P.ED 12:53
DX: G43.909 Migraine, unspecified, not intractable, without status migrainosus (principal); F41.9 Anxiety disorder, unspecified; R51 Headache; R00.0 Tachycardia, unspecified; R07.9 Chest pain, unspecified; I25.10 Atherosclerotic heart disease of native coronary artery without angina pectoris; I10 Essential (primary) hypertension; E78.5 Hyperlipidemia, unspecified; G89.29 Other chronic pain; M54.9 Dorsalgia, unspecified; E11.9 Type 2 diabetes mellitus without complications; Z86.73 Personal history of transient ischemic attack (TIA), and cerebral infarction without residual deficits; Z86.14 Personal history of Methicillin resistant Staphylococcus aureus infection
CPT/HCPCS: J1885; J2060

== ENCOUNTER 2016-11-23 01:44 | Emergency (ER) ==
[2016-11-23 01:50] VITALS: BP 149/88
[2016-11-23] MEDS ORDERED: PHENERGAN PO ONE (02:08)
[2016-11-23] MEDS ORDERED: NUBAIN IM ONE (02:08)
[2016-11-23] MEDS ORDERED: ATIVAN PO ONE (02:08)
--- NOTE | 2016-11-23 02:13 | PROVIDER DOCUMENTATION ---
HPI-Headache - General Chief Complaint: Headache Stated Complaint: BURNING QUIROS Time Seen by Provider: 11/23/16 02:00 Source: patient Allergies/Adverse Reactions: Patient Allergies Allergy/AdvReac Type Severity Reaction Status Date / Time codeine [Codeine] Allergy Mild HIVES Verified 11/23/16 01:55 ondansetron HCl * AdvReac Unknown Unknown Verified 11/23/16 01:55 [From Zofran (as hydrochloride)] Home Medications: Home Medication List Medication Instructions Recorded Confirmed Last Taken Type Alprazolam [Xanax Xr] 2 mg PO BID 11/23/16 11/23/16 11/22/16 21:00 History Butalb/APAP/Caffeine [Fioricet] 1 each PO Q4H PRN PRN 11/23/16 11/23/16 21:15 History Escitalopram [Lexapro] 20 mg PO DAILY 11/23/16 11/23/16 11/22/16 History Quetiapine Fumarate [Seroquel] 25 mg PO QHS 11/23/16 11/23/16 11/22/16 21:00 History - History of Present Illness-Headache Nature of Presenting Problem: 46 year old M presents to the ED with a cc of a headache and anxiety. PT states that he was seen for a headache yesterday morning and given medications. Pt states that he went home and slept and got up and did some things around the house. Pt states that he felt better for a little bit but the headache returned. PT states that his anxiety has been "acting up". PT states that he is having chest pain radiating into jaw and feeling like his throat is going to close. Headache Location: reports: frontal Quality of Pain: reports: burning Severity: reports: mild Onset/Duration: reports: 24 hours ago Timing: reports: still present Headache severity at the maximum: mild Associated Symptoms: reports: headache, other (anxiety) Similar Symptoms Previously?: Yes Recently seen or treated by another doctor?: Yes Review of Systems - Adult - REVIEW OF SYSTEMS - ADULT Constitutional: denies: chills, fever Eyes: denies: blurred vision, double vision Ears, Nose, Mouth & Throat: reports: no symptoms reported Cardiovascular: reports: no symptoms reported Respiratory: reports: no symptoms reported Gastrointestinal: reports: no symptoms reported Genitourinary: reports: no symptoms reported Musculoskeletal: reports: no symptoms reported Integumentary: reports: no symptoms reported Neurological: reports: headache/migraines. denies: dizziness/vertigo Psychiatric: reports: anxiety. denies: suicidal thoughts Endocrine: reports: no symptoms reported Hematologic/Lymphatic: reports: no symptoms reported Allergic/Immunologic: reports: no symptoms reported All Other Systems: Reviewed and Negative Past History - Adult - PAST MEDICAL HISTORY-ADULT Review of Records: reports: Nursing Assessment Review, Medications Reviewed Major Childhood Illnesses: reports: denies history Cardiovascular: reports: angina, CAD, HTN, hyperlipidemia Respiratory: reports: sleep apnea (but not wearing his C-pap) Gastrointestinal: reports: GERD Obstetrical/Gynecological: reports: denies history Genitourinary: reports: kidney stones Musculoskeletal: reports: chronic pain (back), intervertebral disc disease Neurological: reports: headaches/migraines, Seizures/Epilepsy, TIA Psychiatric: reports: anxiety, depression, ptsd, other (panic attacks; somatization disorder; major depressive disorder) Endocrine/Immune: reports: Diabetes (diet controlled), thyroid disorder ( hypothyroid) Other Conditions: reports: MRSA Additional History: Frequent ER visits - PRIOR SURGERIES/PROCEDURES Surgical/Procedure History: reports: tonsillectomy, orthopedic (extremity) ( right should, left shoulder, right knee, right 2nd toe Sx), other (cardiac cath twice. 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 Exam: normal hearing, normal speech, PERRL Integumentary: normal color, normal turgor, warm/dry Psych/Mental Status: anxious Progress - PLAN OF CARE/RESULTS Progress/Plan/Lab Results: plan of care: medications Orders Category Date Time Status Lorazepam [Ativan] Med 11/23/16 02:08 Discontinued 1 mg PO NOW ONE Nalbuphine [Nubain] Med 11/23/16 02:08 Discontinued 10 mg IM NOW ONE Promethazine [Phenergan] Med 11/23/16 02:08 Discontinued 25 mg PO NOW ONE Vital Signs - 24 hr 11/23/16 01:48 Temperature 97.9 F Pulse Rate 90 Respiratory 20 Rate Blood Pressure 149/88 O2 Sat by Pulse 100 Oximetry Pt given results and will be d/c home w/o rx to follow up with PCP. Pt verbally understood instructions. PT remained clinically stable throughout the course of the ED stay and will return if symptoms worsen. Departure - Departure Time of Disposition Order: 02:10 DIAGNOSIS: Anxiety Migraine headache Qualifiers: Migraine type: without aura Status migrainosus presence: without status migrainosus Intractability: not intractable Qualified Code(s): G43.009 - Migraine without aura, not intractable, without status migrainosus Disposition: HOME 01 Certified Medical Emergency: Emergent Condition: Good Additional Instructions: Follow up with primary care doctor. Return to ED for any new or worsening symptoms. ED Follow Up Instructions: You have been treated by a care provider in the Emergency Department. These instructions are being provided to you so you can have an understanding of how to care for yourself upon discharge. Upon discharge from the Emergency Department, you are responsible for making arrangements for follow-up care by a physician of your choice. Take all prescribed medications as directed. Return to the Emergency Department immediately for any new or worsening symptoms. You may call the Physician Referral phone number at [phone] to obtain a list of Physicians who are taking new patients. Referrals: Araseli Andrade MD [Primary Care Provider] - Attestation - Scribe Verification/Attestation Scribe:: Ally Merino Acting as Scribe for:: Ralph Ortiz Scribe documention review:: This chart was documented by a scribe and accurately reflects the service the provider performed and the decisions made by the provider. Physician Attestation - Physician Attestation I, the provider, attest to the following statement:: Ralph Ortiz Physician documentation Attestation:: This documentation recorded by the scribe accurately reflects the service I personally performed and the decisions made by me.
== END 2016-11-23 02:32 | disposition home or self-care (01) ==
LOC: ED 01:44
DX: G43.909 Migraine, unspecified, not intractable, without status migrainosus (principal); F41.9 Anxiety disorder, unspecified; R51 Headache; R07.9 Chest pain, unspecified; R68.84 Jaw pain; I25.10 Atherosclerotic heart disease of native coronary artery without angina pectoris; I10 Essential (primary) hypertension; E78.5 Hyperlipidemia, unspecified; G89.29 Other chronic pain; M54.9 Dorsalgia, unspecified; E11.9 Type 2 diabetes mellitus without complications; F32.9 Major depressive disorder, single episode, unspecified; F43.10 Post-traumatic stress disorder, unspecified; Z79.899 Other long term (current) drug therapy; Z87.442 Personal history of urinary calculi; Z86.14 Personal history of Methicillin resistant Staphylococcus aureus infection
CPT/HCPCS: J2300

== ENCOUNTER 2016-12-25 22:52 | Observation (INO) ==
--- NOTE | 2016-12-25 23:28 | EKG Report ---
Test Performed on : 12/25/2016 11:00:04 PM Test Reason : CHEST PAIN Blood Pressure : / mmHG Vent. Rate : 074 BPM Atrial Rate : 074 BPM P-R Int : 154 ms QRS Dur : 080 ms QT Int : 396 ms P-R-T Axes : 021 -19 017 degrees QTc Int : 439 ms Normal sinus rhythm. Normal ECG When compared with ECG of 22-DEC-2016 08:05, No significant change was found Unconfirmed Result
[2016-12-26 00:07] LABS: MANUAL DIFF NEEDED? NO
[2016-12-26 00:26] LABS: INR 0.96 (0.86-1.15); PROTIME 13.1 Seconds (12.1-15.5)
[2016-12-26 00:27] LABS: PTT PL 28.6 Seconds (22.6-43.9)
[2016-12-26 00:34] LABS: BASO% 0.5 % (0.0-0.8); EOS# 0.24 X1000 (0.0-0.7); EOS% 2.9 % (0.0-10.0); HEMATOCRIT 38.5 % (42.0-52.0); HEMOGLOBIN 13.2 g/dL (14.0-18.0); IMM GRAN# 0.06 X1000 (0.0-0.04); IMM GRAN% 0.7 % (0.0-0.5); LYMPH# 3.53 X1000 (1.2-3.4); LYMPH% 42.4 % (20.5-51.1); MCH 29.3 PG (27-31); MCHC 34.3 g/dL (33-37); MCV 85.6 FL (81-99); MONO# 0.61 X1000 (0.11-0.59); MONO% 7.3 % (1.7-9.3); MPV 10.4 FL (7.4-10.4); NEUT% 46.2 % (42.2-75.2); PLT 164 X1000 (130-400)
[2016-12-26 00:37] LABS: URINE CULTURE PL NEEDED? NO
[2016-12-26 00:59] LABS: UR AMPHETAMINES QUAL NONE DETECTED (NONE DETECT); UR BARBITUATES QUAL PRESUMPTIVE POSITIVE (NONE DETECT); UR BENZODIAZEPIN QUAL PRESUMPTIVE POSITIVE (NONE DETECT); UR CANNABINOIDS QUAL NONE DETECTED (NONE DETECT); UR COCAINE QUAL NONE DETECTED (NONE DETECT); UR MDMA QUAL NONE DETECTED (NONE DETECT); UR METHADONE QUAL NONE DETECTED (NONE DETECT); UR METHAMPHETAMINE QUAL NONE DETECTED (NONE DETECT); UR OPIATES QUAL NONE DETECTED (NONE DETECT); UR OXYCODONE QUAL NONE DETECTED (NONE DETECT); UR PCP QUAL NONE DETECTED (NONE DETECT); UR TCA QUAL NONE DETECTED (NONE DETECT)
[2016-12-26 01:13] LABS: CALCIUM 8.7 mg/dL (8.8-10.2); MAGNESIUM 2.1 mg/dL (1.5-2.7); POTASSIUM 3.3 mmol/L (3.5-5.1); TOTAL BILIRUBIN 0.2 mg/dL (0.20-1.00); TOTAL PROTEIN 6.9 g/dL (6.3-8.3)
[2016-12-26 01:17] LABS: FREE T4 0.83 ng/dL (0.93-1.70)
[2016-12-26 01:24] LABS: BILIRUBIN URINE NEGATIVE (NEGATIVE); BLOOD URINE NEGATIVE (NEGATIVE); CLARITY CLEAR (CLEAR); COLOR YELLOW; GLUCOSE URINE NEGATIVE (NEGATIVE); LEUKOCYTES URINE NEGATIVE (NEGATIVE); NITRITE URINE NEGATIVE (NEGATIVE); PROTEIN URINE NEGATIVE (NEGATIVE); UROBILINOGEN URINE NORMAL
[2016-12-26 01:27] LABS: URINE EPITHELIAL CELLS <10 /HPF (<10); URINE SOURCE CLEAN CATCH; URINE WBC <10 /HPF (<10)
[2016-12-26] MEDS ORDERED: DILAUDID IV ONE (01:52)
[2016-12-26] MEDS ORDERED: KLOR-CON PO ONE (01:53)
[2016-12-26] MEDS ORDERED: NITROGLYCERIN SL ONE (01:55)
[2016-12-26] MEDS ORDERED: TYLENOL PO PRN (01:55)
[2016-12-26] MEDS ORDERED: ASPIRIN PO ONE (01:55)
--- NOTE | 2016-12-26 01:58 | PROVIDER DOCUMENTATION ---
This chart was entered by Nguyen Gamez Scribe, acting as scribe for Bruce Andrade DO. HPI-Chest Pain - General Chief Complaint: Chest Pain Stated Complaint: CHEST PAIN/SOB Time Seen by Provider: 12/25/16 23:01 Source: patient Allergies/Adverse Reactions: Patient Allergies Allergy/AdvReac Type Severity Reaction Status Date / Time codeine [Codeine] Allergy Intermediate RASH Verified 12/20/16 21:07 ondansetron HCl * AdvReac Intermediate VOMITING Verified 12/20/16 21:07 [From Zofran (as hydrochloride)] Home Medications: Home Medication List Medication Instructions Recorded Confirmed Last Taken Type Alprazolam [Xanax Xr] 2 mg PO BID 11/23/16 12/25/16 12/20/16 07:00 History Escitalopram [Lexapro] 20 mg PO HS 11/23/16 12/25/16 12/19/16 20:00 History Quetiapine Fumarate [Seroquel] 25 mg PO QHS 11/23/16 12/25/16 12/19/16 19:00 History Clonazepam [Klonopin] 3 tab PO QHS 12/20/16 12/26/16 12/20/16 07:00 History Lorazepam [Ativan] 1 mg PO DAILY 12/20/16 12/25/16 12/20/16 08:30 History - History of Present Illness-CP Nature of Presenting Problem: 46 Y/O M 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 Pt states that it hurts in chest when he breaths and wheezes. Pt has Hx of cardiac disease. Pt denies any other symptoms. Location: reports: central Quality of Pain: reports: sharp Severity in ED: moderate Onset/Duration: just prior to arrival Timing: still present Context/Activities at Onset: reports: light activity Modifying Factors: improves with: coughing Associated Symptoms: reports: dizziness, shortness of breath Similar Symptoms Previously?: Yes Recently Seen Here or By Another Healthcare Provider: Yes Review of Systems - Adult - REVIEW OF SYSTEMS - ADULT Constitutional: denies: chills, fever Eyes: reports: no symptoms reported Ears, Nose, Mouth & Throat: reports: no symptoms reported Cardiovascular: reports: chest pain. denies: palpitations Respiratory: reports: shortness of breath. denies: cough Gastrointestinal: denies: abdominal pain, nausea Genitourinary: reports: no symptoms reported Musculoskeletal: reports: no symptoms reported Integumentary: reports: no symptoms reported Neurological: reports: no symptoms reported Psychiatric: reports: no symptoms reported Endocrine: reports: no symptoms reported Hematologic/Lymphatic: reports: no symptoms reported Allergic/Immunologic: reports: no symptoms reported All Other Systems: Reviewed and Negative Past History - Adult - PAST MEDICAL HISTORY-ADULT Review of Records: reports: Old Records Reviewed, Nursing Assessment Review Major Childhood Illnesses: reports: denies history Cardiovascular: reports: angina, CAD, HTN, hyperlipidemia Respiratory: reports: sleep apnea (but not wearing his C-pap) Gastrointestinal: reports: GERD Obstetrical/Gynecological: reports: denies history Genitourinary: reports: kidney stones Musculoskeletal: reports: chronic pain (back), intervertebral disc disease Neurological: reports: headaches/migraines, Seizures/Epilepsy, TIA Psychiatric: reports: anxiety, depression, ptsd, other (panic attacks; somatization disorder; major depressive disorder) Endocrine/Immune: reports: Diabetes (diet controlled), thyroid disorder ( hypothyroid) Other Conditions: reports: MRSA Additional History: Frequent ER visits - PRIOR SURGERIES/PROCEDURES Surgical/Procedure History: reports: tonsillectomy, orthopedic (extremity) ( right should, left shoulder, right knee, right 2nd toe Sx), other (cardiac cath twice. arthroscopy ) - IMMUNIZATION STATUS Childhood Immunizations: See Nurse Assessment Flu Vaccine: See Nurse Assessment - FAMILY HISTORY Family History: reviewed, not pertinent Physical Exam-General - PHYSICAL EXAM-ADULT Initial Vital Signs Reviewed: Yes - CONSTITUTIONAL General Appearance: appears well, alert - EYES Eyes: PERRL/EOMI, pink conjunctivae - HEAD, EARS, NOSE, MOUTH & THROAT HENMT: normal ENT inspection, TMs normal - NECK Neck: non-tender, full range of motion, supple - RESPIRATORY Respiratory: no pleuratic chest pain, no respiratory distress, other (wheezing) - CARDIOVASCULAR Cardiovascular: regular rate, rhythm, no edema - GASTROINTESTINAL (ABDOMEN) Abdominal Exam: normal bowel sounds, non tender, soft, no organomegaly, no pulsatile mass - LYMPHATIC Lymphatic: no adenopathy - MUSCULOSKELETAL Back Exam: no CVA tenderness, no vertebral tenderness Extremity: normal range of motion, non-tender, normal gait - SKIN Integumentary: normal color, warm/dry - NEUROLOGIC Neurologic: grossly normal, no motor/sensory deficits - PSYCHIATRIC Psych/Mental Status: normal mood/affect, normal thought content, normal thought process, oriented x 3 Progress - PLAN OF CARE/RESULTS Progress/Plan/Lab Results: Vital Signs - 8 hr 12/25/16 23:04 Temperature 97.4 F L Pulse Rate 70 Respiratory Rate 18 Blood Pressure 138/85 O2 Sat by Pulse Oximetry 100 Laboratory Results - last 24 hr 12/25/16 12/25/16 12/25/16 23:55 23:55 23:55 WBC RBC Hgb Hct MCV MCH MCHC RDW Std Deviation Plt Count MPV Immature Gran % (Auto) Neut % (Auto) Lymph % (Auto) Rush % (Auto) Eos % (Auto) Baso % (Auto) Immature Gran # (Auto) Neut # (Auto) Lymph # (Auto) Rush # (Auto) Eos # (Auto) Baso # (Auto) PT INR APTT (Factor Assay) D-Dimer Sodium 135 L Potassium 3.3 L Chloride 104 Carbon Dioxide 20 L Anion Gap 11 BUN 15 Creatinine 1.3 H Estimated GFR/1.73 m2 59 BUN/Creatinine Ratio 12 Glucose 139 H Calculated Osmolality 273 Calcium 8.7 L Magnesium 2.1 Total Bilirubin 0.20 AST 18 ALT 16 Alkaline Phosphatase 88 Creatine Kinase 198 Troponin T < 0.010 Mwh-H-Esrxxteirfj Pept 27 Total Protein 6.9 Albumin 4.0 Globulin 3.0 Albumin/Globulin Ratio 1.0 TSH Free T4 Urine Source Urine Color Urine Clarity Urine pH Ur Specific [place] Urine Protein Urine Ketones Urine Blood Urine Nitrite Urine Bilirubin Urine Urobilinogen Urine Microscopic RBC Urine WBC Urine Microscopic WBC Ur Epithelial Cells Urine Bacteria Urine Glucose Urine Opiates Screen Ur Oxycodone Screen Urine Methadone Screen Ur Barbituates Screen Ur Tricyclics Screen Ur Phencyclidine Scrn Ur Amphetamines Screen U Methamphetamines Scrn Urine MDMA Screen U Benzodiazepines Scrn Urine Cocaine Screen U Cannabinoids Screen Plasma/Serum Ethyl Alc 12/25/16 12/25/16 12/25/16 23:55 23:55 23:55 WBC 8.32 RBC 4.50 L Hgb 13.2 L Hct 38.5 L MCV 85.6 MCH 29.3 MCHC 34.3 RDW Std Deviation 14.4 Plt Count 164 MPV 10.4 Immature Gran % (Auto) 0.7 H Neut % (Auto) 46.2 Lymph % (Auto) 42.4 Rush % (Auto) 7.3 Eos % (Auto) 2.9 Baso % (Auto) 0.5 Immature Gran # (Auto) 0.06 H Neut # (Auto) 3.84 Lymph # (Auto) 3.53 H Rush # (Auto) 0.61 H Eos # (Auto) 0.24 Baso # (Auto) 0.04 PT 13.1 INR 0.96 APTT (Factor Assay) 28.6 D-Dimer 0.44 Sodium Potassium Chloride Carbon Dioxide Anion Gap BUN Creatinine Estimated GFR/1.73 m2 BUN/Creatinine Ratio Glucose Calculated Osmolality Calcium Magnesium Total Bilirubin AST ALT Alkaline Phosphatase Creatine Kinase Troponin T Ojd-F-Xnpwzvochys Pept Total Protein Albumin Globulin Albumin/Globulin Ratio TSH 4.29 H Free T4 0.83 L Urine Source Urine Color Urine Clarity Urine pH Ur Specific [place] Urine Protein Urine Ketones Urine Blood Urine Nitrite Urine Bilirubin Urine Urobilinogen Urine Microscopic RBC Urine WBC Urine Microscopic WBC Ur Epithelial Cells Urine Bacteria Urine Glucose Urine Opiates Screen Ur Oxycodone Screen Urine Methadone Screen Ur Barbituates Screen Ur Tricyclics Screen Ur Phencyclidine Scrn Ur Amphetamines Screen U Methamphetamines Scrn Urine MDMA Screen U Benzodiazepines Scrn Urine Cocaine Screen U Cannabinoids Screen Plasma/Serum Ethyl Alc 12/25/16 12/26/16 12/26/16 23:55 00:28 00:28 WBC RBC Hgb Hct MCV MCH MCHC RDW Std Deviation Plt Count MPV Immature Gran % (Auto) Neut % (Auto) Lymph % (Auto) Rush % (Auto) Eos % (Auto) Baso % (Auto) Immature Gran # (Auto) Neut # (Auto) Lymph # (Auto) Rush # (Auto) Eos # (Auto) Baso # (Auto) PT INR APTT (Factor Assay) D-Dimer Sodium Potassium Chloride Carbon Dioxide Anion Gap BUN Creatinine Estimated GFR/1.73 m2 BUN/Creatinine Ratio Glucose Calculated Osmolality Calcium Magnesium Total Bilirubin AST ALT Alkaline Phosphatase Creatine Kinase Troponin T Del-L-Pcbpnkghxgq Pept Total Protein Albumin Globulin Albumin/Globulin Ratio TSH Free T4 Urine Source CLEAN CATCH Urine Color YELLOW Urine Clarity CLEAR Urine pH 7.0 Ur Specific [place] 1.010 Urine Protein NEGATIVE Urine Ketones NEGATIVE Urine Blood NEGATIVE Urine Nitrite NEGATIVE Urine Bilirubin NEGATIVE Urine Urobilinogen NORMAL Urine Microscopic RBC Not Reportable Urine WBC NEGATIVE Urine Microscopic WBC <10 Ur Epithelial Cells <10 Urine Bacteria NEGATIVE Urine Glucose NEGATIVE Urine Opiates Screen NONE DETECTED Ur Oxycodone Screen NONE DETECTED Urine Methadone Screen NONE DETECTED Ur Barbituates Screen PRESUMPTIVE POSITIVE A Ur Tricyclics Screen NONE DETECTED Ur Phencyclidine Scrn NONE DETECTED Ur Amphetamines Screen NONE DETECTED U Methamphetamines Scrn NONE DETECTED Urine MDMA Screen NONE DETECTED U Benzodiazepines Scrn PRESUMPTIVE POSITIVE A Urine Cocaine Screen NONE DETECTED U Cannabinoids Screen NONE DETECTED Plasma/Serum Ethyl Alc Orders Category Date Time Status Admit - [facility] Routine AdmDCTranf 12/26/16 01:55 Ordered Activity - Strict Bedrest ORDERED Care 12/26/16 01:55 Active Call Admitting on Arrival AT ADMISSION Care 12/26/16 01:56 Active Cardiac Monitoring DIRECTED Care 12/25/16 23:02 Completed Saline Loc DIRECTED Care 12/26/16 01:55 Active Saline Loc NOW Care 12/25/16 23:02 Completed Vital Signs Order ARRIVAL TO ROOM Care 12/26/16 01:55 Active Heart Healthy Diet Diet 12/26/16 01:56 Completed CHEST-2 VIEWS [RAD] Stat Exams 12/25/16 23:02 Taken ALCOHOL BLOOD Stat Lab 12/25/16 23:55 Completed CBC WITH ELECTRONIC DIFF [HEME] Stat Lab 12/25/16 23:55 Completed CK PROFILE [SP CHEM] Stat Lab 12/25/16 23:55 Completed COMPREHENSIVE METABOLIC PANEL [CHEM] Stat Lab 12/25/16 23:55 Completed D-DIMER PL [COAG] Stat Lab 12/25/16 23:55 Completed FREE T4 Stat Lab 12/25/16 23:55 Results MAGNESIUM [CHEM] Stat Lab 12/25/16 23:55 Completed PRO B-NATRIURETIC PEPTIDE Stat Lab 12/25/16 23:55 Completed PROTIME WITH INR PL [COAG] Stat Lab 12/25/16 23:[address] [COAG] Stat Lab 12/25/16 23:55 Completed TROPONIN T Q8HR Lab 12/26/16 05:46 Received TROPONIN T Q8HR Lab 12/26/16 13:00 Ordered TROPONIN T Q8HR Lab 12/26/16 21:00 Ordered TROPONIN T Stat Lab 12/25/16 23:55 Completed TSH Stat Lab 12/25/16 23:[address] W/POSS RFLX CULT [URINALYSIS] Stat Lab 12/26/16 00:28 Completed URINE DRUG SCREEN PL Stat Lab 12/26/16 00:28 Completed VITAMIN B12 Stat Lab 12/25/16 23:55 Results Acetaminophen [Tylenol] Med 12/26/16 01:55 Active 650 mg PO Q6H PRN PRN Aspirin Med 12/26/16 01:55 Discontinued 325 mg PO NOW ONE Hydromorphone [Dilaudid] Med 12/26/16 01:52 Discontinued 0.5 mg IV NOW ONE Hydromorphone [Dilaudid] Med 12/26/16 01:55 Active 2 mg IM Q4H PRN PRN Nitroglycerin Sl [Nitroglycerin] Med 12/26/16 01:55 Discontinued 0.4 mg SL NOW ONE Potassium Chloride E.r. [Klor-Con] Med 12/26/16 01:53 Discontinued 20 meq PO NOW ONE Telemetry [OM.EQ] Routine Oth 12/26/16 01:55 Active EKG [EKG] Stat Ther 12/25/16 23:02 Draft Transfer/Admit Order [TRANSFER] Routine Transfer 12/26/16 01:57 Completed Result Diagrams: 12/25/16 23:55 12/25/16 23:55 - EKG 1 Time of EKG reading by physician:: 23:00 EKG Read and Signed by:: Bruce Andrade Rate: 74 Rhythm: Normal Sinus Rhythm Comments: Normal ECG - CONSULTS/PCP/HOSPITALIST Notification #1 *Consult/PCP/Hospitalist*: Dr. Hernandez Time Discussed: 01:53 Reason/Comments: Raymond Porter consulted Dr. Hernandez about patient. Departure - Departure Time of Disposition Decision: 23:50 DIAGNOSIS: Chest pain Disposition: ADMITTED INPATIENT 09 Certified Medical Emergency: Emergent Condition: Stable This chart was documented by the indicated scribe, (Nguyen Gamez Scribe) and accurately reflects the services I performed and decisions made by , Bruce Andrade DO, as attested by the provider's signature.
[2016-12-26] MEDS ORDERED: PHENERGAN ONE (02:22)
[2016-12-26] MEDS ORDERED: ASPIRIN ONE (02:22)
[2016-12-26] MEDS ORDERED: KLOR-CON ONE (02:23)
[2016-12-26 07:06] LABS: MANUAL DIFF NEEDED? NO
[2016-12-26 07:07] LABS: BASO% 0.9 % (0.0-0.8); HEMATOCRIT 40.7 % (42.0-52.0); HEMOGLOBIN 13.8 g/dL (14.0-18.0); IMM GRAN# 0.05 X1000 (0.0-0.04); IMM GRAN% 0.7 % (0.0-0.5); LYMPH# 3.44 X1000 (1.2-3.4); LYMPH% 45.7 % (20.5-51.1); MCH 29.1 PG (27-31); MCHC 33.9 g/dL (33-37); MCV 85.9 FL (81-99); MONO# 0.61 X1000 (0.11-0.59); MONO% 8.1 % (1.7-9.3); MPV 10.5 FL (7.4-10.4); NEUT% 40.6 % (42.2-75.2); PLT 164 X1000 (130-400); RBC 4.74 XMIL (4.7-6.1)
[2016-12-26 07:32] LABS: CALCIUM 8.9 mg/dL (8.8-10.2); POTASSIUM 3.9 mmol/L (3.5-5.1)
[2016-12-26] MEDS: DILAUDID IM PRN ×4 (08:04→20:39)
--- NOTE | 2016-12-26 08:50 | Diag Imaging Result Document ---
PROCEDURE NAME: CHEST-2 VIEWS - 12/25/2016 RIGHT CHEST 2 VIEWS: Compared with 12/22/2016. FINDINGS: Heart size appears normal. Inspiration is mildly shallow. The lungs appear essentially clear. There is no pleural effusion or pneumothorax identified. IMPRESSION: Mildly shallow inspiration. No other evidence of acute disease.
--- NOTE | 2016-12-26 16:27 | HISTORY AND PHYSICAL ---
CHIEF COMPLAINT: Chest pain. HISTORY OF PRESENT ILLNESS: 46-year-old male with a past medical history of PTSD, anxiety, migraine, seizure, questionable diabetes, hypertension, depression, coronary artery disease status post left heart catheterization came to the emergency department yesterday night with the chief complaint of chest pain that started yesterday around 10 p.m. while he was sleeping. So he decided to come to the emergency department and the pain went away around 3 a.m. when he received treatment. He described the pain as a pressure like and dull and on and off he had also sharp pain, associated symptoms nausea, dizziness and balance problems. The was at the bedside. This patient was admitted for observation. So far his troponin has been negative x2 and no EKG changes, at the moment of my examination he was alert and he was not complaining about pain. REVIEW OF SYSTEMS: The 14 points of review of system were reviewed. All of them negative except as per HPI. PAST MEDICAL HISTORY: PTSD, anxiety, migraine, coronary artery disease status post left heart catheterization, seizure, questionable diabetes, hypertension and depression. PAST SURGICAL HISTORY: Tonsillectomy, bilateral shoulder surgery and right knee surgery. FAMILY HISTORY: Noncontributory. SOCIAL HISTORY: He denies tobacco, alcohol or drugs, he lives with the family. ALLERGIES: Codeine and Zofran. MEDICATIONS: Quetiapine 300 mg p.o. at bedtime, zonisamide 400 mg p.o. at bedtime, butalbital/acetaminophen/caffeine 1 tablet p.o. q.6 hours p.r.n., gabapentin 300 mg p.o. 4 times a day, fluoxetine 80 mg p.o. daily, Meloxicam 15 mg p.o. daily, clonazepam 3 tablets p.o. at bedtime, Lorazepam 1 mg p.o. daily, escitalopram 20 mg p.o. at bedtime, alprazolam 2 mg p.o. b.i.d. PHYSICAL EXAM: VITAL SIGNS: Temperature 98.1 degrees, pulse 85, respiratory rate 18, blood pressure 138/90, O2 saturation 98 on room air. HEENT: Head normocephalic. No trauma. PERRLA. NECK: Supple. No JVD. No masses. Central trachea. CHEST: Clear to auscultation. No wheezing. No rales. ABDOMEN: Soft, nontender, nondistended. No hepatosplenomegaly. EXTREMITIES: No edema, no clubbing, no cyanosis. NEUROLOGICAL: The patient is alert and oriented x3. No focal neurological deficits. LABORATORY: WBC 7.5 hemoglobin 13.8, hematocrit 40.7, platelets 164,000. Sodium 139, potassium 3.9, chloride 104, bicarbonate 23, BUN 14, creatinine 1.3 glucose 127, calcium 8.9, troponins negative x2. ASSESSMENT AND PLAN: 1. Chest pain. 2. Hypertension. 3. Anxiety. 4. Migraines. 5. Questionable diabetes. 6. Hypertension. 7. Depression. 8. Coronary artery disease. Overall this patient is doing better. He is not complaining of chest pain right now. We are going to keep this patient 1 more night. We are going to continue monitoring the troponins and vital signs, I will restart all his home medications. He had a cardiac catheterization done on 06/30/[address] Nando Plascencia that showed a preserved left ventricular size and function with elevation of left ventricular end-diastolic filling pressure. No mitral regurgitation. No aortic stenosis. Moderate diffuse atherosclerotic heart disease, I do not think this patient is having a typical chest pain. EKG has been fine and troponin has been negative. Probably tomorrow we are going to be able to discharge this patient with followup by his primary care doctor Dr. 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 For the questionable diabetes I will ask for a hemoglobin A1c. cc: Herman Dangelo MD
[2016-12-26] MEDS: XANAX PO SCH ×2 (16:36→21:33)
[2016-12-26] MEDS: NEURONTIN PO SCH ×2 (16:36→20:38)
[2016-12-26] MEDS: FIORICET PO PRN (18:18)
[2016-12-26] MEDS ORDERED: ZONEGRAN PO SCH (21:00)
[2016-12-26] MEDS ORDERED: LEXAPRO PO SCH (21:00)
[2016-12-26] MEDS ORDERED: KLONOPIN PO SCH (21:00)
[2016-12-26] MEDS ORDERED: SEROQUEL PO SCH (21:00)
[2016-12-27] MEDS: DILAUDID IM PRN ×3 (04:30→13:54)
[2016-12-27] MEDS: XANAX PO SCH ×2 (04:30→09:28)
[2016-12-27] MEDS: FIORICET PO PRN (04:37)
[2016-12-27 06:06] LABS: MANUAL DIFF NEEDED? NO
[2016-12-27 06:26] LABS: BASO% 0.4 % (0.0-0.8); EOS# 0.28 X1000 (0.0-0.7); EOS% 3.6 % (0.0-10.0); HEMATOCRIT 40.7 % (42.0-52.0); HEMOGLOBIN 13.4 g/dL (14.0-18.0); IMM GRAN# 0.04 X1000 (0.0-0.04); IMM GRAN% 0.5 % (0.0-0.5); LYMPH# 2.13 X1000 (1.2-3.4); LYMPH% 27.2 % (20.5-51.1); MCH 28.7 PG (27-31); MCHC 32.9 g/dL (33-37); MCV 87.2 FL (81-99); MONO# 0.72 X1000 (0.11-0.59); MONO% 9.2 % (1.7-9.3); MPV 10.8 FL (7.4-10.4); NEUT% 59.1 % (42.2-75.2); PLT 146 X1000 (130-400); RBC 4.67 XMIL (4.7-6.1)
[2016-12-27 06:39] LABS: CALCIUM 8.4 mg/dL (8.8-10.2); POTASSIUM 3.3 mmol/L (3.5-5.1)
[2016-12-27] MEDS ORDERED: KLOR-CON PO ONE (07:50)
[2016-12-27 08:14] LABS: HEMOGLOBIN A1C 6.3 % (4.8-6.0)
--- NOTE | 2016-12-27 08:25 | Diag Imaging Result Document ---
PROCEDURE NAME: KNEE 1-2 VIEWS-RIGHT - 12/26/2016 PORTABLE RIGHT KNEE, TWO VIEWS: FINDINGS: No fracture. No dislocation. IMPRESSION: No acute bony injury.
[2016-12-27] MEDS ORDERED: PROZAC PO SCH (09:00)
[2016-12-27] MEDS: NEURONTIN PO SCH ×2 (09:28→13:54)
--- NOTE | 2016-12-27 10:27 | PROGRESS NOTE ---
DATE: 12/27/2016 SUBJECTIVE: The patient states that he is feeling better today. He denies any chest pain, any shortness of breath, chest pressure. OBJECTIVE: Vital Signs: Blood pressure is 116/73, with a heart rate of 100, respirations are 20, temperature is 98.4 degrees oral, with room air saturation of 97-100%. Cardiovascular: Regular rate and rhythm. S1 and S2 appreciated. Pulmonary: Breath sounds are clear with no increased work of breathing noted. Gastrointestinal: Abdomen is soft, nontender, nondistended with bowel sounds in all 4 quadrants. Extremities: No clubbing, cyanosis, or edema. Calves are nontender. Pulses are palpable x4. Neurologic: He is alert and oriented x3. Labs: WBC is 7.8, with hemoglobin 13.4, hematocrit 40.7, and platelets of 146, 000. Sodium is 135, potassium 3.3, BUN 15, creatinine 1.3, with a glucose of 134. ASSESSMENT: 1. Chest pain. 2. Hypertension. 3. Anxiety. 4. Questionable diabetes. 5. Depression. 6. History of coronary artery disease. PLAN: Overall, he is doing better. He has had no further chest pain, shortness of breath, chest pressure, or palpitations. Troponins have been negative. We will continue with telemetry. We will continue his home medications. He does state that he feels like this episode was from anxiety as his physician in [place] has dismissed him and he is currently seeing a new physician in [place] who has stopped his extended release Xanax and placed him on Klonopin. He feels that all this is due to anxiety. We will continue to monitor. Dictated by SURENDRA Calix for Ian Wang MD cc: SURENDRA Calix Addendum: I personally evaluated and examined the patient in conjunction to the SENIOR DATA WAREHOUSE DEVELOPER and agreed with her assessments and plans. No chest pain. MTDD
[2016-12-27 15:27] VITALS: BP 140/72
--- NOTE | 2017-02-08 13:36 | DISCHARGE SUMMARY ---
ADMISSION DATE: 12/25/2016 DISCHARGE DATE: 12/27/2016 CONSULTATIONS: None. PERTINENT PROCEDURES: 1. Chest x-ray showed mildly shallow inspiration. No other evidence of acute disease. 2. Knee x-ray on the right showed no acute bony injury. DISCHARGE DIAGNOSES: 1. Chest pain resolved. 2. Hypertension. Continue medicines. 3. Anxiety stable. 4. Migraine stable. 5. Questionable diabetes. 6. Hypertension stable. 7. Depression stable. 8. Coronary artery disease stable. HOSPITAL COURSE: Mr. Veliz is a 46-year-old male with a past medical history of PTSD, anxiety, migraine, seizure disorder, questionable diabetes, hypertension, depression, coronary artery disease status post left heart catheterization. Patient came to the emergency room the night prior with chief complaint of chest pain that started the day before his admission while he was sleeping. He came to the ED. The pain went away around 3 a.m. when he received treatment. He described the pain as pressure like, dull on and off but was also sharp pain associated with nausea, dizziness and balance problems. The patient did have 2 negative sets of troponins. No EKG changes. He was placed in observation for chest pain. Overall the patient was doing better. He had no further episodes of chest pain or shortness of breath. All troponins were negative. He was started back on his home medications. He did state that he felt like this episode was from anxiety as his physician in [place] dismissed him and he is currently seeing a new physician in [place] who stopped his extended-release Xanax and placed him on Klonopin. He felt it was due to his anxiety. Patient was discharged home on 12/27/[address] Sanabria. DISCHARGE MEDICATIONS: Please see MAR. FOLLOWUP: The patient was discharged home with his to follow up with his primary care physician. Patient was advised to return to the ED for any worsening symptoms. Dictated by SURENDRA Smith for Ian Wang MD [facility]
== END 2016-12-27 16:18 | disposition home or self-care (01) ==
LOC: P.MEDSURG 22:52 → P.ED 22:52 → INTOOBSV 12-26 02:04 → OBSVTOIN 12-26 02:04 → SUATTDRO 12-26 02:04 → P.MEDSURG 12-26 02:46
PROVIDERS: ATTEND Internal Medicine

== ENCOUNTER 2019-02-19 17:32 | Inpatient (IN) ==
[2019-02-19] MEDS ORDERED: LIORESAL PO PRN (19:28)
[2019-02-19] MEDS: NS 1,000 ML IV SCH (19:39)
[2019-02-19 20:13] LABS: HEMOGLOBIN A1C 8.7 % (4.8-6.0)
[2019-02-19] MEDS ORDERED: SEROQUEL PO SCH (21:00)
[2019-02-19] MEDS: HUMULIN R SUBQ SCH (21:17)
[2019-02-19] MEDS: INDERAL PO SCH (21:17)
[2019-02-19] MEDS: NEURONTIN PO SCH (21:17)
[2019-02-19] MEDS: SEROQUEL PO SCH (21:36)
[2019-02-19] MEDS: ATIVAN PO SCH (21:37)
[2019-02-19] MEDS: NORCO-5 PO SCH (21:37)
[2019-02-19] MEDS ORDERED: SODIUM CHLORIDE 0.9% INJ SCH (21:45)
[2019-02-19] MEDS ORDERED: HALL'S COUGH LOZENGE MT ONE (23:33)
[2019-02-20] MEDS: HUMULIN R SUBQ SCH ×4 (05:59→21:46)
[2019-02-20 07:08] LABS: BASO# 0.04 X1000 (0.0-0.2); BASO% 0.5 % (0.0-0.8); EOS# 0.12 X1000 (0.0-0.7); EOS% 1.6 % (0.0-10.0); HEMATOCRIT 43.6 % (42.0-52.0); HEMOGLOBIN 14.8 g/dL (14.0-18.0); IMM GRAN# 0.04 X1000 (0.0-0.04); IMM GRAN% 0.5 % (0.0-0.5); LYMPH# 4.19 X1000 (1.2-3.4); LYMPH% 54.3 % (20.5-51.1); MCH 29.7 PG (27-31); MCHC 33.9 g/dL (33-37); MCV 87.4 FL (81-99); MONO# 0.63 X1000 (0.11-0.59); MONO% 8.2 % (1.7-9.3); MPV 11.3 FL (7.4-10.4); NEUT% 34.9 % (42.2-75.2); PLT 141 X1000 (130-400); RBC 4.99 XMIL (4.7-6.1); RDW 13.4 % (11.5-14.5); WBC 7.72 X1000 (4.8-10.8)
--- NOTE | 2019-02-20 07:28 | HISTORY AND PHYSICAL ---
CHIEF COMPLAINT: Uncontrolled blood sugar at 617, and creatinine 1.7. HISTORY OF PRESENT ILLNESS: He is a 48-year-old white male who is noncompliant with multiple medical problems, was seen in our clinic with a polyuria, polydipsia, coughing and elevated blood sugar with creatinine of 1.7. Basically, admitted to the hospital for observation for uncontrolled hyperglycemia and pending DKA. The last time his blood sugar was doing very well. He is a 48-year-old white gentleman with a known history of type 2 diabetes on metformin, doing very well. Obviously, he is non monitoring. The patient was recently seen by psychiatrists in [place] who changed a lot of medicines. Blood pressure is also running high. PAST MEDICAL HISTORY: Allergic rhinitis chronic anxiety, depression, type 2 diabetes, metabolic syndrome, hyperlipidemia, hypertension, migraine headaches, nonobstructive coronary artery disease, kidney stone on the left side ZHANG nonalcohol steatohepatitis, history of pseudoseizures, and vitamin B12 deficiency. PAST SURGICAL HISTORY: Tonsillectomy, knee repair with meniscus, right rotator cuff, and left shoulder surgery. MEDICATIONS: Aspirin 81 mg daily, baclofen 10 p.o. b.i.d., Cozaar 50 once daily, diazepam 5 mg twice daily, Celexa 10 mg daily, gabapentin 600 p.o. b.i.d., [place] 7.5 3 times daily, Lamictal 100 daily, metformin 850 three times daily, metoprolol 25 daily, Remeron 30 mg daily, Paxil 20 daily, Propanol 80 p.o. b.i.d., Seroquel 200 daily, and Geodon 80 twice daily. ALLERGIES: Codeine. SOCIAL HISTORY: for 12 years. Disabled. No smoking. No alcohol. No exercise habits. FAMILY HISTORY: Father is 80 years old with heart problems. Mom is healthy. HEALTH MAINTENANCE: Last flu vaccine 2015, pneumococcal 2012. Last prostate December of 2017. Colonoscopy [address] Lovelace. Last eye exam in 10/2008 at [facility]. REVIEW OF SYSTEMS: HEENT: Slightly headache, polyuria, and polydipsia. No neck pain. Cardiopulmonary: No chest pain, shortness of breath, PND, or orthopnea. GI: Nausea. No altered bowel habits. No bleeding per rectum. : No history of hesitancy, frequency, or dysuria. No swelling of legs. No joint pain. Neurologic: No focal symptoms or weakness. PHYSICAL EXAMINATION: VITAL SIGNS: Temperature low-grade fever. Blood pressure is stable. Height 5 feet 10 inches. Weight 240 pounds. HEENT: Atraumatic, normocephalic. Pupils equal, reactive to light. TMs are normal. Nose and throat within normal limits. NECK: Supple. No lymphadenopathy. CHEST: Bilateral air entry. HEART: Sounds are regular. ABDOMEN: Belly is soft, obese, and nontender. EXTREMITIES: No peripheral edema or cyanosis. NEUROLOGIC: No obvious neurological deficits. INVESTIGATIONS: Blood sugar 600. Creatinine 1.7. A1c 8.7. ASSESSMENT AND PLAN: A 48-year-old white gentleman admitted to the hospital with uncontrolled diabetes and on metformin 850 t.i.d., IV fluids, sliding scale with insulin coverage. DVT and GI prophylaxis with Pepcid and Lovenox. Reconcile home medicines slowly. Obviously, his medicines have been changed from the recent psychiatrist. We will follow up. cc: Ludin Andrade MD MTDKary
[2019-02-20 07:38] LABS: POTASSIUM 3.9 mmol/L (3.5-5.1)
[2019-02-20 07:39] LABS: CALCIUM 8.8 mg/dL (8.8-10.2); CREATININE 1.4 mg/dL (0.7-1.2)
[2019-02-20] MEDS: LIPITOR PO SCH (08:14)
[2019-02-20] MEDS: INDERAL PO SCH ×2 (08:14→21:04)
[2019-02-20] MEDS: SEROQUEL PO SCH ×2 (08:14→21:13)
[2019-02-20] MEDS: NEURONTIN PO SCH ×3 (08:14→21:07)
[2019-02-20] MEDS: ASPIRIN PO SCH (08:14)
[2019-02-20] MEDS: LOVENOX SUBQ SCH (08:15)
[2019-02-20] MEDS: NS 1,000 ML IV SCH ×2 (08:23→21:00)
[2019-02-20] MEDS: PAXIL PO SCH (08:23)
[2019-02-20] MEDS ORDERED: LAMICTAL PO SCH (09:00)
[2019-02-20] MEDS ORDERED: ATIVAN PO SCH (09:00)
[2019-02-20] MEDS ORDERED: GEODON PO SCH (09:00)
[2019-02-20] MEDS ORDERED: PAXIL PO SCH (09:00)
--- NOTE | 2019-02-20 09:05 | Diag Imaging Result Doc PS360 ---
KNEE 3 VIEWS LEFT - 02/20/2019 INDICATION: Pain TECHNIQUE: Three views COMPARISON: None FINDINGS: Bones are intact and normally aligned. Joint spaces and soft tissues are clear. IMPRESSION: Negative exam. Electronically signed by Blade Zepeda 02/20/2019 9:02 AM
[2019-02-20] MEDS: LAMICTAL PO SCH ×2 (10:08→21:05)
[2019-02-20] MEDS: CELEBREX PO SCH ×2 (10:08→21:06)
[2019-02-20] MEDS: ATIVAN PO SCH ×4 (10:08→23:46)
[2019-02-20] MEDS: VALIUM PO SCH ×2 (10:08→21:07)
[2019-02-20] MEDS: PEPCID IV SCH ×2 (10:09→21:08)
[2019-02-20] MEDS: GEODON PO SCH ×2 (10:09→21:36)
[2019-02-20] MEDS: NORCO-5 PO SCH ×2 (10:09→21:06)
--- NOTE | 2019-02-20 18:53 | PROGRESS NOTE ---
DATE: 02/20/2019 SUBJECTIVE: The patient was given steroids. As a result, blood sugars running high and he also complains of left knee pain. EXAMINATION: Vital signs: Temperature is 98 degrees. Vitals are stable. HEENT: Within normal limits. Neck: Supple. Chest: Clear. Heart: Sounds are regular. Abdomen: Belly is soft, obese, nontender. ASSESSMENT AND PLAN: 1. Uncontrolled diabetes, hyponatremia, azotemia. Continue IV fluids. 2. A1c 8.7. 3. Since creatinine 1.4, restart on metformin, sliding scale with insulin coverage. 4. Complains of left knee pain. We will x-ray of the left knee. 5. Reconcile home medicines now and repeat the labs in the morning and we will follow up. LEVEL OF DOCUMENTATION: 25 minutes. cc: Ludin Andrade MD
[2019-02-20] MEDS: REMERON PO SCH (21:06)
[2019-02-21] MEDS: PRILOSEC PO SCH (06:18)
[2019-02-21] MEDS: HUMULIN R SUBQ SCH ×4 (06:23→20:31)
[2019-02-21 07:38] LABS: BASO# 0.02 X1000 (0.0-0.2); BASO% 0.4 % (0.0-0.8); EOS# 0.11 X1000 (0.0-0.7); EOS% 2.1 % (0.0-10.0); HEMATOCRIT 42.4 % (42.0-52.0); HEMOGLOBIN 14.5 g/dL (14.0-18.0); IMM GRAN# 0.03 X1000 (0.0-0.04); IMM GRAN% 0.6 % (0.0-0.5); LYMPH# 2.33 X1000 (1.2-3.4); LYMPH% 43.7 % (20.5-51.1); MCH 29.9 PG (27-31); MCHC 34.2 g/dL (33-37); MCV 87.4 FL (81-99); MONO# 0.44 X1000 (0.11-0.59); MONO% 8.3 % (1.7-9.3); MPV 10.7 FL (7.4-10.4); NEUT% 44.9 % (42.2-75.2); PLT 115 X1000 (130-400); RBC 4.85 XMIL (4.7-6.1); RDW 13.3 % (11.5-14.5); WBC 5.33 X1000 (4.8-10.8)
[2019-02-21 07:45] LABS: CALCIUM 8.7 mg/dL (8.8-10.2); CREATININE 1.3 mg/dL (0.7-1.2)
[2019-02-21] MEDS: NORCO-5 PO SCH ×3 (08:45→21:28)
[2019-02-21] MEDS: CELEBREX PO SCH ×3 (08:46→21:28)
[2019-02-21] MEDS: GEODON PO SCH ×3 (08:46→21:28)
[2019-02-21] MEDS: INDERAL PO SCH ×3 (08:46→21:28)
[2019-02-21] MEDS: ASPIRIN PO SCH (08:46)
[2019-02-21] MEDS: LAMICTAL PO SCH ×3 (08:47→21:28)
[2019-02-21] MEDS: SEROQUEL PO SCH ×3 (08:47→21:29)
[2019-02-21] MEDS: PAXIL PO SCH (08:47)
[2019-02-21] MEDS: LIPITOR PO SCH (08:47)
[2019-02-21] MEDS: LOVENOX SUBQ SCH (08:48)
[2019-02-21] MEDS: NEURONTIN PO SCH ×4 (08:48→21:29)
[2019-02-21] MEDS: PEPCID IV SCH ×2 (08:48→19:38)
[2019-02-21] MEDS: NS 1,000 ML IV SCH ×3 (08:49→21:29)
[2019-02-21] MEDS: ATIVAN PO SCH ×4 (08:54→21:28)
[2019-02-21] MEDS: ULTRACET 37.5MG/325MG PO PRN (13:20)
[2019-02-21] MEDS: TORADOL IV PRN (17:47)
[2019-02-21] MEDS: REMERON PO SCH ×2 (19:37→21:29)
--- NOTE | 2019-02-21 19:43 | PROGRESS NOTE ---
DATE: 02/21/2019 SUBJECTIVE: The patient complains of left flank pain, left knee pain. OBJECTIVE: Review of systems: Blood sugars coming down. Started on metformin. On examination, temp is 97 degrees, pulse is 90. Vitals are stable. HEENT exam within normal limits. Neck is supple. Chest is clear. Heart sounds are regular. Belly is soft. Flank tenderness. No signs of peritonitis. Left knee exam is unremarkable. INVESTIGATIONS: CBC: White cell count 5.3, hematocrit 42, platelets 115,000. Sodium 133, potassium 4, chloride 101, BUN 22, creatinine 1.3, glucose 300. X-ray of the knee negative. ASSESSMENT AND PLAN: 1. Uncontrolled diabetes, noncompliant. Continue on IV fluids and metformin 850 TID along with B12 tablets. 2. Left knee pain. No active synovitis noted. 3. Left flank pain. Etiology to be determined. We will use the tramadol or Toradol as needed. 4. Bipolar on current medical regimen. Continue IV fluids. 5. Deep vein thrombosis and gastrointestinal prophylaxis as per order sheet. LEVEL OF DOCUMENTATION: 25 minutes. cc: Ludin Andrade MD [facility]
[2019-02-21] MEDS ORDERED: NORCO-10 PO ONE (20:10)
[2019-02-22] MEDS: HUMULIN R SUBQ SCH ×4 (06:43→21:21)
[2019-02-22 06:59] LABS: BASO# 0.01 X1000 (0.0-0.2); BASO% 0.1 % (0.0-0.8); EOS# 0.15 X1000 (0.0-0.7); HEMATOCRIT 38.5 % (42.0-52.0); HEMOGLOBIN 13.1 g/dL (14.0-18.0); IMM GRAN# 0.03 X1000 (0.0-0.04); IMM GRAN% 0.4 % (0.0-0.5); LYMPH# 1.99 X1000 (1.2-3.4); LYMPH% 26.4 % (20.5-51.1); MCH 29.8 PG (27-31); MCV 87.7 FL (81-99); MONO# 0.54 X1000 (0.11-0.59); MONO% 7.2 % (1.7-9.3); MPV 11.1 FL (7.4-10.4); NEUT# 4.81 X1000 (1.4-6.5); NEUT% 63.9 % (42.2-75.2); PLT 101 X1000 (130-400); RBC 4.39 XMIL (4.7-6.1); RDW 13.1 % (11.5-14.5); WBC 7.53 X1000 (4.8-10.8)
[2019-02-22 07:24] LABS: CALCIUM 8.2 mg/dL (8.8-10.2); CREATININE 1.4 mg/dL (0.7-1.2); POTASSIUM 4.1 mmol/L (3.5-5.1)
[2019-02-22] MEDS: NS 1,000 ML IV SCH ×4 (08:36→21:15)
[2019-02-22] MEDS: NORCO-5 PO SCH ×2 (08:37→21:19)
[2019-02-22] MEDS: GEODON PO SCH ×2 (08:37→21:20)
[2019-02-22] MEDS: LAMICTAL PO SCH ×2 (08:38→21:18)
[2019-02-22] MEDS: ATIVAN PO SCH ×3 (08:39→21:20)
[2019-02-22] MEDS: ASPIRIN PO SCH (08:39)
[2019-02-22] MEDS: NEURONTIN PO SCH ×3 (08:39→21:19)
[2019-02-22] MEDS: LIPITOR PO SCH (08:39)
[2019-02-22] MEDS: CELEBREX PO SCH ×2 (08:39→21:19)
[2019-02-22] MEDS: PAXIL PO SCH (08:39)
[2019-02-22] MEDS: SEROQUEL PO SCH ×2 (08:39→21:18)
[2019-02-22] MEDS: LOVENOX SUBQ SCH (08:40)
[2019-02-22] MEDS: INDERAL PO SCH ×2 (08:40→21:19)
[2019-02-22] MEDS: PEPCID IV SCH ×2 (08:40→21:16)
[2019-02-22] MEDS: PRILOSEC PO SCH (08:51)
[2019-02-22] MEDS: TORADOL IV PRN (18:36)
[2019-02-22] MEDS: REMERON PO SCH (21:19)
--- NOTE | 2019-02-22 22:19 | PROGRESS NOTE ---
DATE: 02/22/2019 SUBJECTIVE: The patient complains of left flank pain. He did not have sleep last night. His is at bedside. 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 PHYSICAL EXAMINATION: Vital signs: Temperature is 92 degrees. Vitals are stable. HEENT: Within normal limits. Chest: Clear. Heart: Sounds are regular. Abdomen: Belly is soft, nontender. INVESTIGATIONS: CBC: White cell count 7.5, hematocrit 38, platelets 101,000. SMA 7: Creatinine 1.4. ASSESSMENT AND PLAN: 1. Uncontrolled diabetes stable. Continue IV fluids and metformin. 2. Chronic kidney disease. Creatinine 1.4. 3. Explained Metformin can not prescribe if the creatinine is more than 1.5 to the at bedside. 4. Left flank pain, questionable etiology. We will get the urine cultures and if he is stable, we will discharge in the morning. LEVEL OF DOCUMENTATION: 25 minutes. cc: Ludin Andrade MD MTDD
[2019-02-23] MEDS: PRILOSEC PO SCH (06:41)
[2019-02-23] MEDS: HUMULIN R SUBQ SCH ×5 (06:41→21:27)
[2019-02-23] MEDS: TORADOL IV PRN (06:48)
[2019-02-23 07:22] LABS: CALCIUM 7.9 mg/dL (8.8-10.2); CREATININE 1.3 mg/dL (0.7-1.2); POTASSIUM 3.8 mmol/L (3.5-5.1)
[2019-02-23] MEDS: GEODON PO SCH ×2 (09:22→21:24)
[2019-02-23] MEDS: LAMICTAL PO SCH ×2 (09:23→21:24)
[2019-02-23] MEDS: NORCO-5 PO SCH ×2 (09:23→21:25)
[2019-02-23] MEDS: CELEBREX PO SCH ×2 (09:24→21:24)
[2019-02-23] MEDS: ASPIRIN PO SCH (09:24)
[2019-02-23] MEDS: ATIVAN PO SCH ×3 (09:24→21:24)
[2019-02-23] MEDS: SEROQUEL PO SCH ×2 (09:24→21:25)
[2019-02-23] MEDS: PEPCID IV SCH ×2 (09:25→21:18)
[2019-02-23] MEDS: INDERAL PO SCH ×2 (09:25→21:25)
[2019-02-23] MEDS: PAXIL PO SCH (09:25)
[2019-02-23] MEDS: NEURONTIN PO SCH ×3 (09:25→21:24)
[2019-02-23] MEDS: LOVENOX SUBQ SCH (09:26)
[2019-02-23] MEDS: LIPITOR PO SCH (09:26)
[2019-02-23] MEDS: NS 1,000 ML IV SCH ×3 (09:37→23:33)
[2019-02-23] MEDS: ULTRACET 37.5MG/325MG PO PRN ×2 (17:35→23:34)
--- NOTE | 2019-02-23 20:55 | PROGRESS NOTE ---
DATE: 02/23/2019 SUBJECTIVE: The patient complains of severe left flank pain. He also complains of agitation and delirium. He has been eating well. He has a lot of mental illnesses. He has chronic pain. Symptoms are out of proportion to the objective findings on flank pain and knee pain. OBJECTIVE: Vital signs: Temperature is 98 degrees, pulse 81, blood pressure is stable. HEENT exam: Within normal limits. Neck: Supple. No lymphadenopathy. Chest: Clear. Cardiovascular: Heart sounds are regular. Abdomen: Belly is soft, nontender. Good bowel sounds. Neurological: No neurological deficits. INVESTIGATIONS: SMA 7: Sodium 138, potassium 3.8, BUN 18, creatinine 1.3, glucose 277. Urine cultures are so far negative. ASSESSMENT AND PLAN: 1. Uncontrolled diabetes, doing very well. Continue present treatment. 2. Left flank pain and knee pain. Symptoms out of proportion to objective findings. 3. Bipolar disorder. We have adjusted his medications, and we will discuss with the . The patient wants to stay in the hospital and sometimes wants against medical advice. I am going to coordinate the care with the psychiatrist and continue present treatment. LEVEL OF DOCUMENTATION: 25 minutes. cc: Ludin Andrade MD
[2019-02-23] MEDS: REMERON PO SCH (21:24)
[2019-02-24] MEDS: PRILOSEC PO SCH (07:58)
[2019-02-24] MEDS: PEPCID IV SCH (07:59)
[2019-02-24] MEDS: NEURONTIN PO SCH (07:59)
[2019-02-24] MEDS: NORCO-5 PO SCH (08:29)
[2019-02-24] MEDS: PAXIL PO SCH (08:29)
[2019-02-24] MEDS: LIPITOR PO SCH (08:30)
[2019-02-24] MEDS: ASPIRIN PO SCH (08:30)
[2019-02-24] MEDS: SEROQUEL PO SCH (08:30)
[2019-02-24] MEDS: CELEBREX PO SCH (08:30)
[2019-02-24] MEDS: LAMICTAL PO SCH (08:30)
[2019-02-24] MEDS: GEODON PO SCH (08:30)
[2019-02-24] MEDS: LOVENOX SUBQ SCH (08:31)
[2019-02-24] MEDS: ATIVAN PO SCH (08:31)
[2019-02-24] MEDS: INDERAL PO SCH (08:31)
[2019-02-24] MEDS: HUMULIN R SUBQ SCH ×2 (08:36→11:43)
[2019-02-24] MEDS: ULTRACET 37.5MG/325MG PO PRN (11:44)
[2019-02-24] MEDS: NS 1,000 ML IV SCH (13:38)
[2019-02-24 16:01] VITALS: BP 142/94
--- NOTE | 2019-02-24 20:17 | DISCHARGE SUMMARY ---
ADMISSION DATE: 02/19/2019 DISCHARGE DATE: 02/24/2019 DISCHARGING DIAGNOSIS: Uncontrolled diabetes with blood sugar 617. SECONDARY DIAGNOSIS: 1. Dehydration with a creatinine 1.7. 2. Allergic rhinitis. 3. Chronic anxiety. 4. Bipolar disorder with depression. 5. Metabolic syndrome . 6. Hyperlipidemia. 7. Hypertension . 8. Migraine headaches. 9. Nonobstructive coronary artery disease. 10. Kidney stone on left side. 11. Nonalcoholic steatohepatitis. 12. History of pseudoseizures. 13. Vitamin B12 deficiency. BRIEF HISTORY: Please see the H and P that was done on 02/19/2019. In brief he is a 48-year-old white male with a lot of medical problems mostly bipolar with psychiatric issues, recently changed the psychiatric change the medications since then mental status is changed a lot, not following the instructions. He was seen in the Urgent Care for URI symptoms, given Decadron shot. Blood sugar was 617, elevated creatinine, admitted to the hospital with uncontrolled diabetes with hyperglycemic dehydration. HOSPITAL COURSE: The patient was given IV fluids and followup hydration creatinine came back 1.3. Sliding scale with insulin coverage and continue on metformin 850 mg t.i.d. with meals. However patient has some unstable psychosis features with belligerent behavior and complains of chronic pain with flank pain, knee pain. X-rays were done the left knee. No acute osseous abnormalities noted. Patient is going to see the psychiatrist at [facility] and Dr. Sanchez for chronic pain. At the time of discharge is stable. LABS: CBC, white cell count 7.5, hematocrit 38.5, platelets of 101,000. Sodium 138, potassium 3.8, chloride 107, BUN 18, creatinine 1.3, glucose 189. Urine cultures were negative . IMAGING: X-ray of left knee negative. Bones are intact normally aligned. DISCHARGE INSTRUCTIONS: Baclofen 10 p.o. b.i.d., Celebrex 200 b.i.d., lorazepam 1 mg t.i.d. Prilosec 40 daily, Seroquel 300 daily, Lipitor 40 daily, quetiapine 600 bedtime, mirtazapine 30 mg at bedtime, Geodon 80 p.o. b.i.d., Valium 5 mg b.i.d., [place] as needed for chronic pain, Lamictal 150 p.o. b.i.d., Paxil 20 daily, propranolol 80 p.o. b.i.d., metformin 850 t.i.d., B12 tablets sublingual daily. Follow up in my office for diabetes and follow up with Dr. Sanchez for chronic pain. Follow up with the psychiatrist for underlying bipolar disorder. cc: Ludin Andrade MD MTDKary
== END 2019-02-24 16:20 | disposition home or self-care (01) | DRG 638 ==
LOC: 3N 20:27
PROVIDERS: ADMIT Internal Medicine; ATTEND Internal Medicine
CPT/HCPCS: 73562; 80048; 82948; 83036; 85025; 87088; A9270; J1650; J1885; J7030; S0028; XXXXX

== ENCOUNTER 2019-04-16 02:14 | Inpatient (IN) ==
[2019-04-16 03:47] LABS: ALB/GLOB RATIO 1.4; ALBUMIN 4.4 g/dL (3.5-5.0); CALCIUM 9.6 mg/dL (8.8-10.2); CREATININE 1.4 mg/dL (0.7-1.2); POTASSIUM 4.3 mmol/L (3.5-5.1); TOTAL BILIRUBIN 0.36 mg/dL (0.20-1.00); TOTAL PROTEIN 7.6 g/dL (6.3-8.3)
[2019-04-16 03:50] LABS: BASO# 0.04 X1000 (0.0-0.2); BASO% 0.5 % (0.0-0.8); EOS# 0.25 X1000 (0.0-0.7); HEMATOCRIT 40.1 % (42.0-52.0); HEMOGLOBIN 14.1 g/dL (14.0-18.0); IMM GRAN# 0.04 X1000 (0.0-0.04); IMM GRAN% 0.5 % (0.0-0.5); LYMPH# 3.15 X1000 (1.2-3.4); LYMPH% 37.9 % (20.5-51.1); MCH 29.6 PG (27-31); MCHC 35.2 g/dL (33-37); MCV 84.2 FL (81-99); MONO# 0.65 X1000 (0.11-0.59); MONO% 7.8 % (1.7-9.3); MPV 11.4 FL (7.4-10.4); NEUT# 4.18 X1000 (1.4-6.5); NEUT% 50.3 % (42.2-75.2); PLT 172 X1000 (130-400); RBC 4.76 XMIL (4.7-6.1); RDW 13.6 % (11.5-14.5); WBC 8.31 X1000 (4.8-10.8)
[2019-04-16] MEDS ORDERED: NITROGLYCERIN TOP ONE (04:02)
[2019-04-16 04:05] LABS: CK INDEX 1.1 (0.0-2.5); CK-MB 2.25 ng/mL (0.0-5.0)
--- NOTE | 2019-04-16 04:14 | PROVIDER DOCUMENTATION ---
HPI-Chest Pain - General Chief Complaint: Chest Pain Stated Complaint: CHEST PAIN, SOB Time Seen by Provider: 04/16/19 02:30 Source: patient Allergies/Adverse Reactions: Patient Allergies Allergy/AdvReac Type Severity Reaction Status Date / Time ondansetron HCl * AdvReac Intermediate VOMITING Verified 04/12/18 14:44 [From Zofran (as hydrochloride)] Home Medications: Home Medication List Medication Instructions Recorded Confirmed Last Taken Type Atorvastatin Calcium 1 each PO DAILY 12/12/17 04/16/19 12/12/17 09:30 History Baclofen 10 mg PO BID PRN 12/12/17 04/16/19 Unknown History Celecoxib [Celebrex] 200 mg PO BID 12/12/17 04/16/19 Unknown History Lorazepam 1 each PO TID 12/12/17 04/16/19 12/12/17 09:30 History Omeprazole [Prilosec] 1 each PO DAILY 12/12/17 04/16/19 Unknown History Quetiapine Fumarate 300 mg PO DAILY 12/12/17 04/16/19 Unknown History Quetiapine Fumarate 600 mg PO QHS 12/12/17 04/16/19 12/11/17 21:00 History Diazepam 5 mg PO BID 02/20/19 04/16/19 Unknown History Hydrocodone/APAP 5 mg/325 mg 1 ea PO BID 02/20/19 04/16/19 Unknown History [[place]-5] Lamotrigine 150 mg PO BID 02/20/19 04/16/19 Unknown History Mirtazapine 30 mg PO QHS 02/20/19 04/16/19 Unknown History Paroxetine [Paxil] 20 mg PO DAILY 02/20/19 04/16/19 Unknown History Propranolol HCl 80 mg PO BID 02/20/19 04/16/19 Unknown History Ziprasidone HCl 80 mg PO BID 02/20/19 04/16/19 Unknown History Cyanocobalamin/Cobamamide [B12 1 ea SUBLINGUAL DAILY #90 yasmani 02/24/19 04/16/19 Unknown Rx 5,000 Mcg Microlozenge] Metformin [Glucophage] 850 mg PO TID CC #270 tab 02/24/19 04/16/19 Unknown Rx Dulaglutide [Trulicity] 1 applicatn ORDERED 04/16/19 04/16/19 Unknown History Nitroglycerin 0.4 mg PO DIRECTED 04/16/19 04/16/19 Unknown History Oxycodone HCl 5 mg PO Q6H PRN PRN 04/16/19 04/16/19 Unknown History Prazosin HCl 6 mg PO QHS 04/16/19 04/16/19 Unknown History - History of Present Illness-CP Nature of Presenting Problem: A 48 Y/O MALE PRESENTS WITH C/O CHEST PAIN. PAIN IS PRESENT IN THE CENTER AND RADIATED TO THE NECK AND LEFT SHOULDER. IS ASSOCIATED WITH SOME SOB. STARTED AROUND 9 PM AND HAS BEEN THERE SINCE. PER PT, HE TOOK NITRO X3 AT 10-15 WI NUTES INTERVAL WITH OUT ANY RELIEF AND CAME TO ER. PER PT HE IS FEELING ANXIOUS TOO. HE HAD SIMILAR EPISODE ON March. PT SAYS HAS HX OF PTSD AND CAD, HAD CARDIAC CATH DONE ABOUT 4 YRS AGO. DENIES ANY RELATION OF PAIN WITH FOOD OR BREATHING. DENIES COUGH OR HEADACHE OR NAUSEA OR EMESIS Location: reports: substernal, central Chest Pain Radiation: reports: neck, shoulders (LEFT) Quality of Pain: reports: sharp Severity in ED: mild Onset/Duration: abrupt, 1 hour ago Timing: still present, improving Context/Activities at Onset: reports: none Modifying Factors: improves with: nothing Associated Symptoms: reports: shortness of breath. denies: abdominal pain, back pain, diaphoresis, dizziness, fever/chills, headache, heartburn, nausea, synco pe, vomiting Nitro Today/Relief: 0.4 mg x 3 Aspirin Treatment Today: no aspirin today Prior Chest Pain/Cardiac Workup: reports: cardiac cath Similar Symptoms Previously?: Yes Recently Seen Here or By Another Healthcare Provider: No Review of Systems - Adult - REVIEW OF SYSTEMS - ADULT Constitutional: denies: no symptoms reported Eyes: denies: no symptoms reported Ears, Nose, Mouth & Throat: denies: no symptoms reported Cardiovascular: reports: no symptoms reported, see HPI Respiratory: reports: see HPI Gastrointestinal: denies: no symptoms reported Genitourinary: denies: no symptoms reported Musculoskeletal: denies: no symptoms reported Integumentary: denies: no symptoms reported Neurological: denies: no symptoms reported Psychiatric: denies: no symptoms reported Endocrine: denies: no symptoms reported Hematologic/Lymphatic: denies: no symptoms reported Allergic/Immunologic: denies: no symptoms reported Past History - Adult - PAST MEDICAL HISTORY-ADULT Review of Records: reports: Nursing Assessment Review, Medications Reviewed, Social history reviewed & non-contributory. Major Childhood Illnesses: reports: denies history Cardiovascular: reports: angina, CAD, HTN, hyperlipidemia Respiratory: reports: sleep apnea Gastrointestinal: reports: GERD Obstetrical/Gynecological: reports: denies history Genitourinary: reports: kidney disease, kidney stones Musculoskeletal: reports: chronic pain, intervertebral disc disease Neurological: reports: headaches/migraines, Seizures/Epilepsy, TIA Psychiatric: reports: anxiety, depression, ptsd, other Endocrine/Immune: reports: Diabetes, thyroid disorder Other Conditions: reports: MRSA Additional History: Frequent ER visits - PRIOR SURGERIES/PROCEDURES Surgical/Procedure History: reports: cholecystectomy, tonsillectomy, orthopedic (extremity), other - IMMUNIZATION STATUS Childhood Immunizations: See Nurse Assessment Flu Vaccine: See Nurse Assessment - FAMILY HISTORY Family History: reviewed, not pertinent Physical Exam-General - PHYSICAL EXAM-ADULT Initial Vital Signs Reviewed: Yes - CONSTITUTIONAL General Appearance: appears well, alert, obese, anxious, other (TACHYPNEIC) - EYES Eyes: PERRL/EOMI - HEAD, EARS, NOSE, MOUTH & THROAT HENMT: normocephalic/atraumatic, moist mucous membranes, normal ENT inspection - NECK Neck: supple - RESPIRATORY Respiratory: lungs clear, normal breath sounds, no pleuratic chest pain, no respiratory distress, no accessory muscle use, increased rate - CARDIOVASCULAR Cardiovascular: normal peripheral pulses, regular rate, rhythm, no edema, no JVD , no murmur - GASTROINTESTINAL (ABDOMEN) Abdominal Exam: non tender, soft - MUSCULOSKELETAL Back Exam: no CVA tenderness, no vertebral tenderness Extremity: normal range of motion, no pedal edema, no calf tenderness - SKIN Integumentary: normal color, warm/dry - NEUROLOGIC Neurologic: grossly normal - PSYCHIATRIC Psych/Mental Status: oriented x 3, anxious - HEART Score HEART Score: History: Moderately Suspicious HEART Score: ECG: Non-Specific Repolarization Disturbance/LBBB/PM HEART Score: Age: 45-65 Years HEART Score: Risk Factors for Atherosclerotic Disease: > or = 3 Risk Factors or History of Atherosclerotic Disease HEART Score: Troponin: < or = Normal Limit Total HEART Score:: 5 Progress - PLAN OF CARE/RESULTS Result Diagrams: 04/16/19 03:05 04/16/19 03:05 - REASSESSMENT Reassessment #1 Time Reassessed: 04:24 Status: unchanged Reassessment Comment: ATIVAN 0.5 MG ORDERED Departure - Departure Date of Disposition Decision: 04/16/19 Time of Disposition Decision: 05:30 DIAGNOSIS: Chest pain, Uncontrolled diabetes mellitus, Anxiety Disposition: ADMITTED INPATIENT 09 Certified Medical Emergency: Emergent Condition: Stable - Critical Care Note This patient required my direct & personal management of CC.: No Attestation - Physician/ LOLY Attestation Patient care was provided by Advanced Practice Provider:: No The physician spent face to face time with patient:: Yes Advanced Practice Provider documentation review:: Supervising physician onsite and consulted in the evaluation and care of this patient. The physician did have a face to face encounter with the patient.
[2019-04-16] MEDS ORDERED: ATIVAN IV ONE (04:50)
[2019-04-16 05:17] LABS: URINE SOURCE CLEAN CATCH
[2019-04-16 05:21] LABS: BILIRUBIN URINE NEGATIVE (NEGATIVE); BLOOD URINE NEGATIVE (NEGATIVE); COLOR YELLOW; GLUCOSE URINE >1000 mg/dL (NEGATIVE); KETONE URINE TRACE mg/dL (NEGATIVE); LEUKOCYTES URINE NEGATIVE (NEGATIVE); NITRITE URINE NEGATIVE (NEGATIVE); PROTEIN URINE 30 mg/dL (NEGATIVE); SP GRAVITY URINE 1.044; TURBIDITY URINE CLEAR (CLEAR); UROBILINOGEN URINE NORMAL (NORMAL)
[2019-04-16 05:23] LABS: UR EPITHELIAL CELLS <10 /HPF (<10); URINE BACTERIA NEGATIVE /HPF; URINE RBC <10 /HPF (<10); URINE WBC <10 /HPF (<10)
--- NOTE | 2019-04-16 05:53 | EKG Report ---
Test Performed on : 04/16/2019 02:27:47 AM Test Reason : cp Blood Pressure : / mmHG Vent. Rate : 098 BPM Atrial Rate : 098 BPM P-R Int : 154 ms QRS Dur : 086 ms QT Int : 366 ms P-R-T Axes : 029 -20 040 degrees QTc Int : 467 ms Normal sinus rhythm. Normal ECG When compared with ECG of 12-DEC-2017 13:43, No significant change was found Unconfirmed Result
[2019-04-16] MEDS ORDERED: TYLENOL PO PRN (06:09)
[2019-04-16] MEDS ORDERED: NITROGLYCERIN SL PRN (06:09)
--- NOTE | 2019-04-16 06:43 | HISTORY AND PHYSICAL ---
PRIMARY CARE PHYSICIAN: Dr. Andrade. CHIEF COMPLAINT: Chest pain. HISTORY OF PRESENTING ILLNESS: A 48-year-old male with a history of diabetes mellitus type 2, hypertension, hyperlipidemia, coronary artery disease who presented to emergency department with 1- day history of having substernal chest pain. The patient states that he took about 2 nitroglycerin and he did not have any relief. He was brought to the emergency department and, due to his presenting symptoms, it was thought that we will place him in observation for further evaluation and management. At the time of my examination, patient denied any headache, fever, chills, nausea, vomiting, diarrhea, hemoptysis, melena, weight changes, but complained of chest pain. PAST MEDICAL HISTORY: Diabetes mellitus type 2, hypertension, hyperlipidemia, coronary artery disease, pseudoseizures. PAST SURGICAL HISTORY: Tonsillectomy, right rotator cuff surgery, left shoulder surgery. ALLERGIES: Zofran. CURRENT MEDICATIONS: Atorvastatin 40 mg p.o. daily, baclofen 10 mg p.o. b.i.d., Celebrex 200 mg p.o. b.i.d., diazepam 5 mg p.o. b.i.d., [place] 5 mg 1 p.o. b.i.d., lamotrigine 150 mg p.o. b.i.d., lorazepam 1 mg p.o. t.i.d., metformin 850 mg p.o. t.i.d., mirtazapine 30 mg p.o. at bedtime, omeprazole 40 mg p.o. daily, paroxetine 20 mg p.o. daily, propranolol 80 mg p.o. b.i.d., quetiapine 300 mg p.o. daily, and 600 mg p.o. at bedtime, ziprasidone 80 mg p.o. b.i.d. SOCIAL HISTORY: He smokes cigars. Denies any history of alcohol or illicit drug use. FAMILY HISTORY: No history of coronary artery disease. REVIEW OF SYSTEMS: A 14-point review of system is as in HPI. Other systems negative. PHYSICAL EXAMINATION: GENERAL: Cooperative, friendly male. He is resting comfortably now. VITAL SIGNS: Temperature 98.3 degrees, pulse 100, respiration 13, blood pressure 124/84. HEENT: Atraumatic, normocephalic. Extraocular movements intact. PERRLA. NECK: Supple. CHEST: Clear to auscultation. CARDIOVASCULAR: Regular rate and rhythm. S1, S2. ABDOMEN: Soft. Positive bowel sounds. EXTREMITIES: No edema. NEURO: He is awake, alert, oriented x3. : No bladder distention. SKIN: Warm. LABORATORIES AND STUDIES: WBC 8.31, hemoglobin 14.1, hematocrit 40.1, platelets 172,000. Sodium 133, potassium 4.3, chloride 95, CO2 is 23, BUN is 20, creatinine 1.4, glucose is 392. Toxicology acetone negative. ASSESSMENT: A 48-year-old male with a history of diabetes mellitus type 2, hypertension, coronary artery disease and hyperlipidemia who presents to the emergency department with 1-day history of chest pain. We will place the patient for observation for further evaluation and management. 1. Chest pain. 2. Diabetes mellitus type 2. 3. Hypertension. 4. Hyperlipidemia. PLAN: 1. We will admit the patient to medical floor with telemetry. 2. Continue with cardiac workup. Check EKG, serial cardiac enzymes. Have patient continued on aspirin. We will use sublingual nitroglycerin and morphine p.r.n. chest pain. 3. We will consult Cardiology. 4. We will monitor blood glucose and put patient on glycemic protocol with sliding scale insulin regimen. 5. We will monitor blood pressure. Resume antihypertensive agent. 6. Restart other home medications. Check lipid profile. 7. Put patient on DVT prophylaxis with SCD. 8. We will continue to follow and reassess. Make further recommendation based on patient's clinical course. cc: Mac Pantoja MD
[2019-04-16] MEDS: MORPHINE IV PRN ×4 (06:55→20:41)
--- NOTE | 2019-04-16 07:22 | Diag Imaging Result Doc PS360 ---
EXAM: CHEST-PORTABLE INDICATION: CP TECHNIQUE: One view COMPARISON: 10/31/2018 FINDINGS: The lungs are grossly clear. There is no discrete pleural fluid collection or pneumothorax. The cardiomediastinal silhouette and central vasculature are grossly unremarkable. IMPRESSION: No evidence of acute pathology by plain radiograph. Electronically signed by Carlos Alvares 04/16/2019 7:20 AM
[2019-04-16] MEDS: PRILOSEC PO SCH (07:56)
[2019-04-16] MEDS: HUMULIN R SUBQ SCH ×5 (09:48→21:22)
[2019-04-16] MEDS: ASPIRIN PO SCH (09:53)
[2019-04-16] MEDS: ZOFRAN IV PRN ×3 (10:31→20:41)
--- NOTE | 2019-04-16 12:39 | PROGRESS NOTE ---
DATE: 04/16/2019 He was admitted early this morning. A 48-year-old, presented with chest pain. He is a patient of Dr. Amy Andrade. History of diabetes mellitus type 2, hypertension, hyperlipidemia, coronary artery disease. Presented to the emergency room with a history of having substernal chest pain, that took just about 2 nitroglycerin. Did not get any relief. Brought to the emergency room and placed on observation. Dr. Patel has evaluated and they are doing a Lexiscan myocardial perfusion scan. EXAMINATION: He remains afebrile, temperature 98.1 degrees, pulse 95, respirations 16, blood pressure 113/77. Pupils are equal and round. Lungs are clear in all lung sparks. Cardiovascular Examination: Regular rhythm and rate without murmur or S3. Abdomen is soft. Skin is warm and dry. Urine output is 550 mL. ASSESSMENT AND PLAN: 1. Chest pain. He gives a report that he has had history of angina before. Undergoing myocardial perfusion scan. Chest pain is typical that he reports as angina in his mid sternum and radiates to the left arm. 2. Diabetes mellitus type 2. Pattern sugars. 3. Hypertension. 4. Hyperlipidemia. 5. Note, he is a patient of Dr. Andrade so make sure he is transferred to his service. REVIEW OF HIS ORDERS: Aspirin 325 mg a day, omeprazole 20 mg daily. REVIEW OF HIS LAB: CBC unremarkable. Electrolytes unremarkable. Creatinine was 1.4. Troponin less than 0.01. cc: MD Ludin Adair MD MTDD
[2019-04-16 13:17] LABS: HEMOGLOBIN A1C 9.8 % (4.8-6.0)
[2019-04-16] MEDS ORDERED: REGLAN IV ONE (13:46)
--- NOTE | 2019-04-16 13:57 | CARDIOLOGY CONSULTATION ---
DATE: 04/16/2019 CONSULTATION REQUESTED BY: The hospitalist service. PRIMARY CARE DOCTOR: Dr. Andrade. CHIEF COMPLAINT: Chest pain. HISTORY: Mr. Veliz is a 48-year-old male who is known to our service. He presents to the ER at about 4 a.m. today, in the morning, complaining of recurrent chest pain. The pain is substernal, intense. He says 8 to 10/10 in intensity. He took sublingual nitroglycerin without significant relief. The pain radiates to the neck and shoulder. This pain is similar to multiple pains that he has had in the past. They have led to multiple visits to the emergency room and to the hospital. The most recent ER presentation was, I believe, to [facility] and they did an echocardiogram in December 2018. He was admitted on February 19 to this hospital under Dr. Andrade with a presumed diagnosis of hyperglycemia, uncontrolled diabetes. There was a suspicion of impending DKA. The patient is still having pain as we speak, he says 8/10 in intensity and he is getting IV pain medicines. They have ordered morphine for him as well as Zofran. PAST MEDICAL HISTORY: Positive for coronary heart disease. I saw him at my office last time in August 2016. Since then, he has not been back. He is known to have single-vessel coronary artery disease in the LAD distribution. The last heart catheterization was performed in June 2015 showed moderate LAD disease after origin of a large diagonal branch. Decision had been made a long time ago to treat him medically because of the small size of that terminal LAD. He does have history of hypertension. He has dyslipidemia. Surprisingly, they are not checking lipids on him at this time. He has a history of seizure disorder. He has posttraumatic stress syndrome, history of migraine, history of a obstructive sleep apnea. He has chronic back pain for which he goes to [facility]. He has received epidural injections. SURGICAL HISTORY: He has had arthroscopic knee surgery, shoulder surgery, tonsillectomy. SOCIAL HISTORY: He is . He is disabled. He has 1 child. He is not a smoker. HOME MEDICINES AT THE TIME OF THIS ADMISSION: Atorvastatin daily. Baclofen 10 mg twice a day. Celebrex 200 twice a day. Cyanocobalamin sublingually. Diazepam 5 mg twice a day. Trulicity as ordered. Hydrocodone twice a day. Lamotrigine 150 twice a day. Metformin 850 two times a day. Mirtazapine 30 mg at bedtime. Oxycodone 5 mg every 6 hours. Prazosin 6 mg at bedtime. Propranolol 80 mg twice a day. Ziprasidone on 80 mg twice a day. ALLERGIES: Question of allergy to sulfa. REVIEW OF SYSTEMS: He has recurrent chest pains every so often. Diabetes has not been well controlled, according to him. His hemoglobin A1c has not been checked on this admission. No other positives. He has chronic pain syndrome. PHYSICAL EXAMINATION: Vital Signs: Blood pressure is 110/80, temperature 98.3 degrees, pulse 102, respirations 16. General: He is awake, alert, oriented, in no distress. HEENT: Unremarkable. Chest: Clear to auscultation and percussion. Heart: Sounds regular rhythm. I do not hear a gallop or murmur. Abdomen: Soft, nontender. No masses. No hepatomegaly. Extremities: Show good pulses. No peripheral edema. Neurological: Nonfocal. Moves 4 extremities. BLOOD WORK: Sodium 133, potassium 4.3, sugar is 392, BUN 20, creatinine 1.4. D-dimer 0.27. White cell count 8310, hemoglobin 14.1, hematocrit 40.1%. His chest x-ray done in the ER showed no evidence of acute pathology. EKG done only 1 time at 2 a.m. shows sinus rhythm without any acute changes. IMPRESSION: 1. Patient presented to the hospital with recurrent chest pain. This could be angina pectoris. Historically, he does have single-vessel disease involving a small terminal portion of the LAD. 1. Dyslipidemia. 2. Diabetes mellitus type 2. 3. Chronic kidney disease. 4. Chronic pain syndrome on narcotic therapy. 5. History of posttraumatic stress disorder. RECOMMENDATIONS: At this time, we will request a resting gated myocardial perfusion study since he is having 8/10 chest pain in severity. If that study shows a significant defect, we will proceed with heart catheterization. If on the other hand, the study shows normal perfusion we will do a follow-up stress walking lexiscan stress test in the morning, tomorrow. cc: MD Ludin Gonzalez MD MTDD
[2019-04-16] MEDS ORDERED: LIORESAL PO PRN (18:30)
[2019-04-16] MEDS: NORCO-5 PO SCH (20:46)
[2019-04-16] MEDS ORDERED: PRAZOSIN HCL 6 MG PO SCH (21:00)
[2019-04-16] MEDS ORDERED: GEODON PO SCH (21:00)
[2019-04-16] MEDS: REMERON PO SCH (21:19)
[2019-04-16] MEDS: INDERAL PO SCH (21:19)
[2019-04-16] MEDS: LAMICTAL PO SCH (21:20)
[2019-04-16] MEDS: GEODON PO SCH (21:20)
[2019-04-16] MEDS: CELEBREX PO SCH (21:20)
[2019-04-16] MEDS: SEROQUEL PO SCH (21:20)
[2019-04-16] MEDS: MINIPRESS PO SCH ×2 (21:21→21:22)
[2019-04-17] MEDS: MORPHINE IV PRN ×5 (00:21→20:43)
[2019-04-17] MEDS: HUMULIN R SUBQ SCH ×4 (06:08→22:34)
[2019-04-17] MEDS: PRILOSEC PO SCH (06:08)
[2019-04-17] MEDS ORDERED: LEXISCAN ONE (08:07)
[2019-04-17 08:24] LABS: CHOLESTEROL 223 mg/dL (0-200); HDL 27 mg/dL (35-55); TRIGLYCERIDES 639 mg/dL (39-160)
[2019-04-17] MEDS ORDERED: OMEPRAZOLE PO SCH (09:00)
[2019-04-17] MEDS: GLUCOPHAGE PO SCH ×3 (10:21→16:26)
[2019-04-17] MEDS: CELEBREX PO SCH ×2 (10:21→22:24)
[2019-04-17] MEDS: ASPIRIN PO SCH (10:21)
[2019-04-17] MEDS: ATIVAN PO SCH ×3 (10:21→22:24)
[2019-04-17] MEDS: SEROQUEL PO SCH ×2 (10:22→22:24)
[2019-04-17] MEDS: INDERAL PO SCH ×2 (10:22→22:25)
[2019-04-17] MEDS: NORCO-5 PO SCH ×2 (10:22→22:29)
[2019-04-17] MEDS: LAMICTAL PO SCH ×2 (10:22→15:11)
[2019-04-17] MEDS: PAXIL PO SCH (10:22)
[2019-04-17] MEDS: VITAMIN B-12 SL SCH (10:29)
[2019-04-17] MEDS: GEODON PO SCH ×2 (15:12→22:28)
--- NOTE | 2019-04-17 16:05 | Diag Imaging Result Document ---
PROCEDURE NAME: MYOCARDIAL PERF SCAN, STR/REST - 04/16/2019 STUDY: 2 day rest/stress Lexiscan myocardial perfusion study. A walking Lexiscan protocol was used. INDICATION: Chronic pain. DESCRIPTION: The patient came into the nuclear laboratory on 04/16, received resting injection of technetium 99 sestamibi 38.8 mCi. Multiple tomographic views of the heart were obtained at rest. Subsequently, the patient underwent walking Lexiscan protocol and infusion of Lexiscan 0.4 mg followed by injection of technetium 99 sestamibi 39.7 mCi. Multiple tomographic views of the cardiac structures were obtained following the completion of the exercise protocol. SUMMARY OF THE ELECTROCARDIOGRAPHIC PORTION OF THE STUDY: Resting ECG showed sinus rhythm, rate 91 beats per minute. Resting blood pressure 120/83. Resting ECG showed left anterior fascicular block with poor R wave progression. During the protocol, the heart rate increased to a maximum of 115 beats per minute, blood pressure went up to 130/80. The patient reported mild dyspnea, no chest pain, no palpitations. ECG showed no ischemic changes. Peak exercise ECG showed sinus tachycardia. Following completion of the test, the heart rate and blood pressure returned to back to baseline. In summary, the electrocardiographic response to infusion of Lexiscan using the walking Lexiscan protocol is negative. SUMMARY OF THE MYOCARDIAL PERFUSION PORTION OF THE STUDY: Poststress tomographic views of the left ventricle showed essentially normal myocardial perfusion. There is no convincing evidence of any postexercise defect. There is a very trivial basal inferior defect that appears to be present also in the rest images. The resting images showed normal perfusion. Polar plots revealed the same. There is no convincing evidence of any inducible ischemia. There is also no convincing evidence of a scar. Gated SPECT on the rest images using a 16-bin protocol shows ejection fraction of 90%, poststress is 81%. Using the alternative protocol, the Myometrix, the resting ejection fraction is 90%, poststress is 82%. The lung/heart ratio is normal. TID is elevated at 1.21. SUMMARY: This study shows: 1. Unremarkable electrocardiographic response to a walking Lexiscan protocol. 2. "Normal" poststress myocardial perfusion scan. There is no scintigraphic evidence of pharmacologically-induced myocardial ischemia. 3. Preserved left ventricular systolic function with abnormal response from rest to stress. The ejection fraction drops by 9 points between rest to stress on both software modalities, the [place] tool and the Myometrix. In addition, the TID is elevated. 4. This might suggest the possibility of global ischemia. Clinical correlation is strongly recommended. cc: Cj Patel MD
--- NOTE | 2019-04-17 18:13 | CARDIOLOGY PROGRESS NOTE ---
DATE: 04/17/2019 CHIEF COMPLAINT: Chest pain. SUBJECTIVE: Mr. Veliz continues to have chest pain. OBJECTIVE: Vital Signs: Blood pressure is 128/86, temperature 98.4, pulse 88, respirations 14. General: He is awake, alert and oriented. HEENT: Unremarkable. Chest: Clear to auscultation and percussion. Cardiovascular: Regular rate and rhythm. No gallop or murmur. Extremities: No edema. Neurologic: Follows commands. Moves all 4 extremities. BLOOD WORK: Yesterday his BUN was 20, creatinine 1.4. Sodium was 133. Sugar was high. Lipid panel: His LDL cholesterol is 118, total cholesterol 293, triglycerides 639, HDL 27. DIAGNOSTIC TESTS: His stress test done today shows a drop in the ejection fraction from rest to stress, even though the perfusion images were relatively normal. There was a trivial basal inferior defect that appeared to be reversible. IMPRESSION: 1. Patient who has chest pain, possible angina pectoris. 2. History of seizure disorder and posttraumatic stress disorder. 3. History of dyslipidemia. 4. Diabetes mellitus type 2. 5. Chronic kidney disease. RECOMMENDATIONS: At this time I would suggest to proceed with a followup heart catheterization. The benefits, risks and complications were discussed. He is agreeable. I will ask Dr. Abiel Ramos to perform a catheterization in the morning. I want to put the patient on IV bicarbonate overnight. Further advice will be forthcoming. cc: MD Ludin Gonzalez MD
[2019-04-17] MEDS: SODIUM BICARBONATE 8.4% 150 MEQ in STERILE WATER INJ. 1,000 ML IV SCH (18:16)
[2019-04-17] MEDS ORDERED: NS 1,000 ML IV SCH (21:30)
--- NOTE | 2019-04-17 21:55 | PROGRESS NOTE ---
DATE: 04/17/2019 SUBJECTIVE: The patient has intermittent chest pain relieved with nitroglycerin. He is out of the bed. He went for the stress test with Dr. Patel. Consultation appreciated. OBJECTIVE: Vital Signs: Temperature is 97 degrees, pulse is 87, blood pressure is stable, 99% on room air. HEENT: Within normal limits. Physical examination with no change. LABORATORY DATA: D-dimer 0.27, creatinine 1.4. Cardiac enzymes were negative. Triglycerides 639, cholesterol 229. Myocardial perfusion scan reported. He had dropped to 9 points from rest to the stress, and this could be suggestive of global ischemia ASSESSMENT AND PLAN: Chest pain. In light of risk factors, Dr. Patel decided to do the left heart catheterization in the morning. Continue on mucomyst.. We will hold the metformin and will give gentle IV fluids and will follow up. LEVEL OF DOCUMENTATION: 25 minutes. cc: Ludin Andrade MD MTDD
[2019-04-17] MEDS: REMERON PO SCH (22:25)
[2019-04-17] MEDS: MINIPRESS PO SCH ×2 (22:26)
[2019-04-17] MEDS: LIPITOR PO SCH (22:28)
[2019-04-17] MEDS: MUCOMYST 20% PO SCH (23:19)
[2019-04-18] MEDS: ZOFRAN IV PRN ×2 (01:00→21:32)
[2019-04-18] MEDS: MORPHINE IV PRN ×4 (01:01→21:33)
[2019-04-18] MEDS: ASPIRIN PO SCH ×2 (07:39→08:01)
[2019-04-18] MEDS: CELEBREX PO SCH ×3 (07:39→21:08)
[2019-04-18] MEDS: LAMICTAL PO SCH ×3 (07:39→15:16)
[2019-04-18] MEDS: PAXIL PO SCH ×2 (07:39→08:03)
[2019-04-18] MEDS: ATIVAN PO SCH ×4 (07:39→21:00)
[2019-04-18] MEDS: INDERAL PO SCH ×3 (07:40→20:59)
[2019-04-18] MEDS: VITAMIN B-12 SL SCH ×2 (07:40→08:01)
[2019-04-18] MEDS: SEROQUEL PO SCH ×3 (07:40→21:34)
[2019-04-18] MEDS: MUCOMYST 20% PO SCH ×3 (07:43→21:36)
[2019-04-18] MEDS: PRILOSEC PO SCH (07:46)
[2019-04-18] MEDS: HUMULIN R SUBQ SCH ×4 (07:51→21:16)
[2019-04-18 08:01] LABS: BASO# 0.03 X1000 (0.0-0.2); BASO% 0.5 % (0.0-0.8); EOS# 0.21 X1000 (0.0-0.7); EOS% 3.3 % (0.0-10.0); HEMATOCRIT 39.4 % (42.0-52.0); HEMOGLOBIN 13.5 g/dL (14.0-18.0); IMM GRAN# 0.03 X1000 (0.0-0.04); IMM GRAN% 0.5 % (0.0-0.5); LYMPH# 2.35 X1000 (1.2-3.4); LYMPH% 36.8 % (20.5-51.1); MCH 29.8 PG (27-31); MCHC 34.3 g/dL (33-37); MONO# 0.43 X1000 (0.11-0.59); MONO% 6.7 % (1.7-9.3); MPV 10.8 FL (7.4-10.4); NEUT# 3.33 X1000 (1.4-6.5); NEUT% 52.2 % (42.2-75.2); PLT 131 X1000 (130-400); RBC 4.53 XMIL (4.7-6.1); WBC 6.38 X1000 (4.8-10.8)
[2019-04-18] MEDS: NORCO-5 PO SCH ×2 (08:03→21:01)
[2019-04-18 08:22] LABS: CALCIUM 8.6 mg/dL (8.8-10.2); CREATININE 1.3 mg/dL (0.7-1.2)
[2019-04-18] MEDS ORDERED: HEPARIN ONE (09:35)
[2019-04-18] MEDS ORDERED: XYLOCAINE 1% ONE (09:35)
[2019-04-18] MEDS ORDERED: HEPARIN 1000 UNITS/NS 2,000 UNIT/1,000 ML IV.SOLN ONE (09:35)
[2019-04-18] MEDS ORDERED: NITROGLYCERIN ONE (09:35)
[2019-04-18] MEDS ORDERED: VERSED ONE (10:09)
[2019-04-18] MEDS ORDERED: NS 250 ML ONE (10:10)
[2019-04-18] MEDS ORDERED: DILAUDID ONE (10:10)
--- NOTE | 2019-04-18 12:13 | CARDIAC CATH REPORT ---
PROCEDURE NAME: - INDICATION FOR THE PROCEDURE: Patient with chest pain. He had an abnormal nuclear scan with evidence for transient ischemic dilatation as well as a drop in his ejection fraction on stress. PROCEDURES PERFORMED: 1. Left heart catheterization. 2. Selective coronary angiography. PROCEDURE IN DETAIL: Mr. Veliz was brought to the catheterization laboratory in a fasting state. Informed consent was obtained. Prepped in usual fashion. He was anesthetized over the right radial artery after Adalberto's test proved adequate. A 5-Scottish sheath was placed via true Seldinger technique. Radial cocktail was administered. Catheters were introduced and hemodynamic measurements were made of the ascending thoracic aorta. Coronary angiography was performed in multiple views using JL3.5 and JR4 diagnostic catheters. Left heart catheterization was performed using the JR4. At the conclusion of the procedure, all sheaths and catheters were removed. TR band was left inflated at 10 mL of air. Good capillary refill. Good hemostasis. 70 mL of Visipaque. 5 to 10 mL of blood loss. No apparent complications. FINDINGS: 1. The left main originates from the left coronary cusp and has minor luminal irregularities. 2. The LAD originates from the left main. In the late proximal, early mid vessel, there is a 60 to 70 percent lesion that occurs at the continuation of a small LAD, the takeoff of a large diagonal and a septal ore storage drier. The continuation of the LAD after this lesion appears to possibly have severe disease, involving this main branch 60-70% lesion. The remainder of the LAD is small with mild disease in the early distal portion and small vessel disease in the distal vessel. The large diagonal branch appears free of significant disease. 3. Circumflex originates from the left main. Overall, the proximal vessel appears relatively normal, as does the mid and distal. A large portion of the circumflex vessel appears to be a large OM branch. It appears relatively normal. 4. The right coronary originates from the right coronary cusp. Due to some tortuosity of the aorta, it was difficult to cannulate. The right coronary has proximal as well as early mid vessel lesions of around to 30 to 40 percent. The remainder of the vessel has minimal luminal irregularities. There is a right-sided PDA that is normal. 5. Aortic blood pressure 121/77 with a mean of 95. Left ventricular pressure 106/6 with an LVEDP of 11. ASSESSMENT: Mr. Veliz is a 48-year-old gentleman who presented with chest pain and had an abnormal nuclear scan as detailed above. PLAN: We are having review of the procedure with [facility] to evaluate the proximal LAD and consideration for potential intervention to this vessel. Presently, the patient is going to return to the floor for usual postprocedure convalescence. No acute medical changes at this point. cc: MD Ludin Galdamez MD MTDD
[2019-04-18] MEDS: SODIUM BICARBONATE 8.4% 150 MEQ in STERILE WATER INJ. 1,000 ML IV SCH ×2 (13:00→14:18)
[2019-04-18] MEDS: GEODON PO SCH (15:16)
[2019-04-18] MEDS: MINIPRESS PO SCH ×2 (20:59→21:00)
[2019-04-18] MEDS ORDERED: GEODON PO SCH (21:00)
[2019-04-18] MEDS: REMERON PO SCH (21:01)
[2019-04-18] MEDS: LIPITOR PO SCH (21:08)
--- NOTE | 2019-04-18 21:11 | PROGRESS NOTE ---
DATE: 04/18/2019 SUBJECTIVE: The patient is pain-free and NPO, waiting for left heart catheterization, and he was started on IV fluids and Mucomyst. OBJECTIVE: Temperature is 98 degrees, pulse 92, blood pressure is stable.HEENT: Within normal limits. Chest: Clear. Heart sounds are regular. Belly is soft, nontender. No obvious deficits. INVESTIGATIONS: White cell count 6.3, hematocrit 39, platelets 131,000. Sodium 135, potassium 4, BUN 19, creatinine 1.3. ASSESSMENT AND PLAN: Chest pain. Possible global ischemia. Dr. Ramos is going to do the left heart catheterization. Findings reported, left anterior descending 60% to 70% lesion, and he is planning to send to PCI to [facility], making the arrangements, and continue present treatment. LEVEL OF DOCUMENTATION: 25 minutes. cc: Ludin Andrade MD
[2019-04-19] MEDS: ZOFRAN IV PRN ×2 (01:30→06:02)
[2019-04-19] MEDS: MORPHINE IV PRN ×2 (01:31→06:02)
[2019-04-19] MEDS: PRILOSEC PO SCH (06:02)
[2019-04-19] MEDS: HUMULIN R SUBQ SCH (06:05)
[2019-04-19] MEDS: ASPIRIN PO SCH (06:54)
[2019-04-19 07:29] VITALS: BP 109/69
[2019-04-19 08:02] LABS: HEMATOCRIT 36.6 % (42.0-52.0); HEMOGLOBIN 12.3 g/dL (14.0-18.0); MCH 29.8 PG (27-31); MCHC 33.6 g/dL (33-37); MCV 88.6 FL (81-99); MPV 10.8 FL (7.4-10.4); RBC 4.13 XMIL (4.7-6.1); RDW 13.9 % (11.5-14.5); WBC 4.86 X1000 (4.8-10.8)
[2019-04-19 08:03] LABS: INR 1.02; PROTIME 13.5 Seconds (11.0-16.0)
[2019-04-19 08:12] LABS: CALCIUM 8.9 mg/dL (8.8-10.2); CREATININE 1.5 mg/dL (0.7-1.2); MAGNESIUM 1.9 mg/dL (1.5-2.7); POTASSIUM 3.7 mmol/L (3.5-5.1)
--- NOTE | 2019-04-20 07:30 | DISCHARGE SUMMARY ---
ADMISSION DATE: 04/16/2019 DISCHARGE DATE: 04/19/2019 DIAGNOSIS: Chest pain due to 70% left anterior descending disease. SECONDARY DIAGNOSES: 1. Type 2 diabetes. 2. Allergic rhinitis. 3. Chronic anxiety. 4. Bipolar disorder with depression. 5. Metabolic syndrome. 6. Hyperlipidemia. 7. Hypertension. 8. Migraine headaches. 9. Kidney stones on the left side. 10. History of pseudoseizures. 11. Vitamin B12 deficiency. 12. Nonalcoholic steatohepatitis. CONSULTS: Dr. Patel and Dr. Ramos. PROCEDURES: 1. Myocardial perfusion scan reported preserved LV systolic function, questionable global ischemia. Recommended left heart catheterization. 2. Cardiac catheterization by Dr. Ramos reported LAD proximal, consideration PCI and intervention to [facility]. HISTORY OF PRESENT ILLNESS: He is a 48-year-old white gentleman with above problems, noncompliant, diabetes, hyperlipidemia, underlying psychiatric problems, came in with chest pain precordial, unable to breathe and came to the emergency room. The patient was admitted to the hospital after he was ruled out for UT and EKG, enzymes. Cardiology consult was obtained. Stress test was not completely normal. In light of risk factors, noncritical lesions before, Dr. Patel recommended left heart catheterization, which was done by Dr. Ramos. It has been reported significant proximal LAD disease and transferred to [facility] for PCI and intervention. The patient was stable. Before catheterization, Mucomyst, IV fluids given for chronic kidney disease. LABS: CBC: White cell count 4.8, hematocrit 36, platelets 116,000. PT/INR is normal. D-dimer 0.27. Sodium 137, potassium 3.7, BUN 17, creatinine 1.5. A1c 9.8. Triglycerides 639, cholesterol 223, HDL 27. Chest x-ray, no acute disease. DISCHARGE INSTRUCTIONS: Baclofen 10 p.o. b.i.d., Celebrex 200 p.o. b.i.d., Prilosec 40 daily, Lipitor will increase to 80 mg daily, quetiapine 600 at bedtime, Remeron 30 mg at bedtime, Geodon 80 p.o. b.i.d., Lamictal 150 p.o. b.i.d., Paxil 20 daily, Propanol 80 p.o. b.i.d., metformin 850 t.i.d., Trulicity 0.75 once a week, B12 as directed, prazosin 6 mg daily. DISCHARGE INSTRUCTIONS: Will follow up as an outpatient after PCI with the following instructions: A1c below 7, LDL less than 70, will optimize the treatment and continue to see the psychiatrist for underlying problems. cc: MD Cj Post MD Peter Johnson, MD MTDD
== END 2019-04-19 08:18 | disposition short-term general hospital (02) | DRG 287 ==
LOC: 3N 02:14 → ED 02:14 → OBSVTOIN 02:15 → SUATTDRO 02:15
PROVIDERS: ADMIT Internal Medicine; ATTEND Internal Medicine

== ENCOUNTER 2019-07-01 10:40 | Inpatient (IN) ==
--- NOTE | 2019-07-01 13:58 | HISTORY AND PHYSICAL ---
CHIEF COMPLAINT: Uncontrolled blood sugar for the last few days. HISTORY OF PRESENT ILLNESS: He is a 48-year-old, white gentleman with a known history of type 2 diabetes poorly controlled and seen in our clinic with blood sugar 450-500. He was on metformin. The patient was placed on FreeStyle Lakesha. Blood sugars are running around 480. In my office, creatinine 1.5, sodium 130, anion gap is around 15. The patient was sent home on Tresiba. Returned to the clinic and increasing the blood sugars, polyuria, polydipsia. Anion gap has increased to 20. Basically admitted to the hospital, impending DKA. PAST MEDICAL HISTORY: 1. Allergic rhinitis. 2. Chronic anxiety/depression. 3. Type 2 diabetes. 4. Metabolic syndrome. 5. Hyperlipidemia. 6. Hypertension. 7. Migraine headaches. 8. Nonobstructive CAD. Last catheterization was done in March 2019. 9. History of kidney stone on the left side. 10. Nonalcoholic steatohepatitis. 11. History of pseudoseizures. 12. Vitamin B12 deficiency. PAST SURGICAL HISTORY: Tonsillectomy, knee repair with meniscus, right rotator cuff repair, left shoulder surgery. ALLERGIES: Reported to codeeamon and Zocynthia. SOCIAL HISTORY: for 12 years. Disabled. No smoking. No alcohol. No exercise habits. FAMILY HISTORY: Father is alive at 80 with heart problems. Mom is healthy. HEALTH MAINTENANCE: Flu vaccine 2017, pneumococcal vaccine 2012, colonoscopy [address] Lovelace. MEDICATIONS: Baclofen 10 mg b.i.d., lorazepam 1 mg t.i.d., Lipitor 40 in the morning, quetiapine 600 at bedtime, Remeron 30 mg at bedtime, Geodon 80 p.o. b.i.d., Valium 5 mg b.i.d., [place] 1 tablet p.o. b.i.d., Lamictal 150 p.o. b.i.d., Paxil 20 daily, propanol 80 p.o. b.i.d., metformin 850 t.i.d., Trulicity 0.75 once a week, prazosin 6 at bedtime, nitroglycerin as needed, aspirin 325 daily, Tresiba 25 units at bedtime. REVIEW OF SYSTEMS: HEENT: Vision problem. Polyuria, polydipsia. No neck pain. Cardiopulmonary: No chest pain, shortness of breath, PND, orthopnea. GI: Nauseous. No altered bowel habits. No bleeding per rectum. : No history of hesitancy, frequency, dysuria. No swelling of legs. No joint pain. Neurologic: No focal symptoms or weakness. PHYSICAL EXAMINATION: VITAL SIGNS: Temperature is 97 degrees, heart rate is 113, blood pressure 137/87, 5 feet 11 '' 240 pounds. HEENT EXAMINATION: Atraumatic, normocephalic. Pupils equal, react to light. TMs are normal. Nose and throat within normal limits. Dry mucous membranes. NECK: Supple. No lymphadenopathy. No goiter. CHEST: There is bilateral air entry. HEART: Sounds are regular. No murmur. ABDOMEN: Belly is soft, obese, nontender. Good bowel sounds. RECTAL: Deferred. EXTREMITIES: No peripheral edema, cyanosis. NEUROLOGIC: No obvious neurological deficits. INVESTIGATIONS: Blood sugars 400, anion gap 20. ASSESSMENT AND PLAN: 1. A 48-year-old, white male admitted to the hospital with uncontrolled diabetes due to noncompliance, with impending diabetic ketoacidosis. Plan is intravenous fluids, insulin sliding scale protocol, metformin, Trulicity, and Tresiba. Follow up on electrolytes and A1c. 2. Deep venous thrombosis and gastrointestinal prophylaxis with Lovenox and Nexium. 3. Reconcile home medicines for underlying medical problems. 4. Chest pain. Last catheterization was no flow-limiting lesions. 5. Continue medical management and also needed diabetic teaching classes. human services program specialist consult. Follow up on the pending labs. cc: Ludin Andrade MD [facility]
[2019-07-01] MEDS: LOVENOX SUBQ SCH (14:29)
[2019-07-01] MEDS: NS 1,000 ML IV SCH (14:37)
[2019-07-01] MEDS: NEXIUM IV SCH (14:38)
[2019-07-01] MEDS ORDERED: VALIUM PO ONE (14:55)
[2019-07-01] MEDS: HUMULIN R SUBQ SCH ×2 (16:25→22:23)
[2019-07-01] MEDS: NORCO-5 PO PRN (17:21)
[2019-07-01] MEDS: GLUCOPHAGE PO SCH (17:21)
[2019-07-01] MEDS: ATIVAN PO PRN (20:34)
[2019-07-01] MEDS: REMERON PO SCH (21:46)
[2019-07-01] MEDS: MINIPRESS PO SCH (21:46)
[2019-07-01] MEDS: INDERAL PO SCH (21:46)
[2019-07-01] MEDS: LIPITOR PO SCH (21:46)
[2019-07-01] MEDS: GEODON PO SCH (21:47)
[2019-07-01] MEDS: SEROQUEL PO SCH (21:47)
[2019-07-01] MEDS: VALIUM PO SCH (21:47)
[2019-07-01] MEDS: TRESIBA FLEXTOUCH U-100 SUBQ SCH (22:22)
[2019-07-01] MEDS: LIORESAL PO PRN (22:22)
[2019-07-01] MEDS ORDERED: INSULIN PEN NEEDLES ONE (22:24)
[2019-07-02] MEDS: ATIVAN PO PRN ×3 (02:00→17:31)
[2019-07-02] MEDS: NORCO-5 PO PRN ×2 (02:00→09:03)
[2019-07-02] MEDS: NS 1,000 ML IV SCH ×3 (04:27→15:51)
[2019-07-02] MEDS: HUMULIN R SUBQ SCH ×4 (06:53→21:31)
[2019-07-02 07:03] LABS: HEMATOCRIT 38.5 % (42.0-52.0); HEMOGLOBIN 13.5 g/dL (14.0-18.0); MCH 30.2 PG (27-31); MCHC 35.1 g/dL (33-37); MCV 86.1 FL (81-99); MPV 11.3 FL (7.4-10.4); RBC 4.47 XMIL (4.7-6.1); RDW 13.8 % (11.5-14.5); WBC 5.39 X1000 (4.8-10.8)
[2019-07-02 07:33] LABS: HEMOGLOBIN A1C 9.6 % (4.8-6.0)
[2019-07-02 07:36] LABS: AGAP 16; ALBUMIN 3.8 g/dL (3.5-5.0); ALKALINE PHOSPHATASE 93 U/L (32-122); BUN 13 mg/dL (8-22); CALCIUM 9.1 mg/dL (8.8-10.2); CHLORIDE 100 mmol/L (98-107); COSMO 278; CREATININE 1.1 mg/dL (0.7-1.2); ESTIMATED GFR > 60; GLUCOSE 269 mg/dL (70-104); GOT 21 U/L (10-34); GPT 29 U/L (10-44); MAGNESIUM 1.7 mg/dL (1.5-2.7); PHOSPHORUS 3.3 mg/dL (2.7-4.5); POTASSIUM 3.9 mmol/L (3.5-5.1); SODIUM 134 mmol/L (136-145); TCO2 18 mmol/L (25-35); TOTAL BILIRUBIN 0.24 mg/dL (0.20-1.00); TOTAL PROTEIN 7.6 g/dL (6.3-8.3)
[2019-07-02] MEDS: VITAMIN B-12 SL SCH (08:53)
[2019-07-02] MEDS: ASPIRIN PO SCH (08:53)
[2019-07-02] MEDS: GLUCOPHAGE PO SCH ×3 (08:53→16:11)
[2019-07-02] MEDS: VALIUM PO SCH ×2 (08:54→21:30)
[2019-07-02] MEDS: INDERAL PO SCH ×2 (08:54→21:31)
[2019-07-02] MEDS: LOVENOX SUBQ SCH ×2 (11:19→14:11)
[2019-07-02] MEDS: SODIUM CHLORIDE 0.9% INJ SCH (11:20)
[2019-07-02] MEDS: NEXIUM IV SCH ×2 (11:20→14:11)
[2019-07-02] MEDS: GEODON PO SCH ×2 (15:51→21:30)
[2019-07-02] MEDS: ZOFRAN IV PRN (17:31)
[2019-07-02] MEDS: NITROGLYCERIN SL PRN (20:59)
--- NOTE | 2019-07-02 21:07 | PROGRESS NOTE ---
DATE: 07/02/2019 SUBJECTIVE: The patient is sleepy. Still on IV fluids. Blood sugars are coming down on FreeStyle Lakesha. OBJECTIVE: Vital signs: On exam temp is 98 degrees, pulse is 80. Vitals are stable. 94% on room air. HEENT exam: Within normal limits. Neck: Is supple. Chest: Is clear. Heart: Sounds are regular. Abdomen: Belly is soft, nontender. Neurologic: No obvious deficits. INVESTIGATIONS: CBC: White cell count 5.3, hematocrit 38.5, platelets 118,000. Sodium 134, potassium 3.9, BUN 31, creatinine 1.1. Anion gap is 16. Sugar is 239. LFTs were normal. ASSESSMENT AND PLAN: 1. Uncontrolled diabetes due to noncompliance. Continue on Tresiba and metformin 850 t.i.d. Consider adding the Jardiance. 2. Chronic anxiety, chronic pain. Continue present treatment. 3. Deep vein thrombosis and gastrointestinal prophylaxis as per order sheet and will follow up on [facility] 7. LEVEL OF DOCUMENTATION: 25 minutes. cc: Ludin Andrade MD
[2019-07-02] MEDS: SEROQUEL PO SCH (21:30)
[2019-07-02] MEDS: MINIPRESS PO SCH (21:30)
[2019-07-02] MEDS: LIPITOR PO SCH (21:30)
[2019-07-02] MEDS: REMERON PO SCH (21:30)
[2019-07-02] MEDS: TRESIBA FLEXTOUCH U-100 SUBQ SCH (21:31)
[2019-07-03] MEDS: ATIVAN PO PRN ×3 (00:43→16:48)
[2019-07-03] MEDS: NORCO-5 PO PRN ×2 (05:07→16:48)
[2019-07-03] MEDS: LIORESAL PO PRN ×2 (05:08→18:17)
[2019-07-03] MEDS: NS 1,000 ML IV SCH ×2 (05:08→18:17)
[2019-07-03] MEDS: HUMULIN R SUBQ SCH ×4 (06:32→20:05)
[2019-07-03 07:28] LABS: AGAP 11; BUN 15 mg/dL (8-22); CALCIUM 8.5 mg/dL (8.8-10.2); CHLORIDE 101 mmol/L (98-107); COSMO 275; CREATININE 1.2 mg/dL (0.7-1.2); ESTIMATED GFR > 60; GLUCOSE 212 mg/dL (70-104); POTASSIUM 3.5 mmol/L (3.5-5.1); SODIUM 134 mmol/L (136-145); TCO2 22 mmol/L (25-35)
[2019-07-03] MEDS: GLUCOPHAGE PO SCH ×3 (08:02→16:48)
[2019-07-03] MEDS: ASPIRIN PO SCH (08:02)
[2019-07-03] MEDS: VALIUM PO SCH ×2 (08:02→20:03)
[2019-07-03] MEDS: INDERAL PO SCH ×2 (08:02→20:03)
[2019-07-03] MEDS: VITAMIN B-12 SL SCH (08:03)
[2019-07-03] MEDS: NITROGLYCERIN SL PRN (10:54)
[2019-07-03] MEDS: GEODON PO SCH ×2 (10:55→20:03)
[2019-07-03] MEDS: SODIUM CHLORIDE 0.9% INJ SCH (12:49)
[2019-07-03] MEDS: NEXIUM IV SCH (12:49)
[2019-07-03] MEDS: LOVENOX SUBQ SCH (12:49)
[2019-07-03] MEDS: LIPITOR PO SCH (20:02)
[2019-07-03] MEDS: TRESIBA FLEXTOUCH U-100 SUBQ SCH (20:02)
[2019-07-03] MEDS: REMERON PO SCH (20:03)
[2019-07-03] MEDS: MINIPRESS PO SCH (20:03)
[2019-07-03] MEDS: SEROQUEL PO SCH (20:03)
--- NOTE | 2019-07-03 23:44 | PROGRESS NOTE ---
DATE: 07/03/2019 SUBJECTIVE: The patient still complains of fatigue and weakness. He is using polypharmacy. Blood sugar is slowly coming down. PHYSICAL EXAMINATION: Temperature is 98 degrees, pulse is 80, blood pressure is stable. HEENT exam within normal limits. Neck is supple. No lymphadenopathy. Chest: Bilateral air entry. Heart sounds are regular belly is soft, nontender and obese. LABORATORY DATA: Sodium 134, potassium 3.5, chloride 101, CO2 is 22, anion gap is 11, blood sugar is 212. ASSESSMENT AND PLAN: 1. Impending diabetic ketoacidosis, improving. Continue on Tresiba, metformin, Trulicity. Add Jardiance. Continue monitoring. FreeStyle Lakesha. 2. Polypharmacy. Past C-peptide is 3.5. We are going to check the electrolytes with magnesium and phosphorus tomorrow. If he is stable, we will discharge. 3. Also needs diabetic teaching classes. Level of documentation 25 minutes. cc: Ludin Andrade MD
[2019-07-04] MEDS: LIORESAL PO PRN (01:52)
[2019-07-04] MEDS: ATIVAN PO PRN ×2 (01:52→09:52)
[2019-07-04] MEDS: NORCO-5 PO PRN (01:52)
[2019-07-04] MEDS: ZOFRAN IV PRN (02:13)
[2019-07-04] MEDS: HUMULIN R SUBQ SCH (06:28)
[2019-07-04] MEDS: NS 1,000 ML IV SCH (06:30)
[2019-07-04 06:44] LABS: BASO# 0.01 X1000 (0.0-0.2); BASO% 0.2 % (0.0-0.8); EOS# 0.12 X1000 (0.0-0.7); EOS% 2.6 % (0.0-10.0); HEMATOCRIT 37.5 % (42.0-52.0); HEMOGLOBIN 12.7 g/dL (14.0-18.0); IMM GRAN# 0.03 X1000 (0.0-0.04); IMM GRAN% 0.6 % (0.0-0.5); LYMPH# 1.69 X1000 (1.2-3.4); LYMPH% 36.4 % (20.5-51.1); MCH 29.1 PG (27-31); MCHC 33.9 g/dL (33-37); MONO# 0.41 X1000 (0.11-0.59); MONO% 8.8 % (1.7-9.3); MPV 10.8 FL (7.4-10.4); NEUT# 2.38 X1000 (1.4-6.5); NEUT% 51.4 % (42.2-75.2); PLT 132 X1000 (130-400); RBC 4.36 XMIL (4.7-6.1); RDW 13.4 % (11.5-14.5); WBC 4.64 X1000 (4.8-10.8)
[2019-07-04 07:05] LABS: AGAP 15; BUN 11 mg/dL (8-22); CALCIUM 8.4 mg/dL (8.8-10.2); CHLORIDE 104 mmol/L (98-107); COSMO 281; CREATININE 1.1 mg/dL (0.7-1.2); ESTIMATED GFR > 60; GLUCOSE 212 mg/dL (70-104); MAGNESIUM 1.7 mg/dL (1.5-2.7); PHOSPHORUS 2.9 mg/dL (2.7-4.5); POTASSIUM 3.7 mmol/L (3.5-5.1); SODIUM 138 mmol/L (136-145); TCO2 19 mmol/L (25-35)
[2019-07-04 07:45] VITALS: BP 137/86
[2019-07-04] MEDS: VITAMIN B-12 SL SCH (09:53)
[2019-07-04] MEDS: INDERAL PO SCH (09:53)
[2019-07-04] MEDS: GEODON PO SCH (09:53)
[2019-07-04] MEDS: VALIUM PO SCH (09:53)
[2019-07-04] MEDS: ASPIRIN PO SCH (09:53)
[2019-07-04] MEDS: GLUCOPHAGE PO SCH (09:59)
--- NOTE | 2019-07-08 19:15 | DISCHARGE SUMMARY ---
ADMISSION DATE: 07/01/2019 DISCHARGE DATE: 07/04/2019 DISCHARGING DIAGNOSIS: Uncontrolled diabetes due to noncompliance with hyperglycemic dehydration. SECONDARY DIAGNOSES: 1. Noncritical coronary artery disease. Last left heart catheterization was done in April 2019 in [facility]. 2. Type 2 diabetes. 3. Allergic rhinitis. 4. Chronic anxiety. 5. Bipolar disorder with depression. 6. Metabolic syndrome. 7. Hyperlipidemia. 8. Hypertension. 9. Migraine headaches. 10. Kidney stones on the left side. 11. History of pseudoseizures. 12. B12 deficiency. 13. Nonalcoholic steatohepatitis. BRIEF HISTORY: Please see the H P that was done at the time of admission. In brief, he is a 48- year-old white gentleman, noncompliant, polypharmacy, came in with blood sugar 500. Freestyle Lakesha was applied. Initially titrated as an outpatient. Failed to improve. Admitted to the hospital with impending DKA. Patient was given IV fluids. Previous C-peptide 3.4. He was also given diabetic teaching classes. Following up-titrating the medications slowly, blood sugars came back to around 200. He continues to monitor blood sugars by Freestyle Lakesha, along with control by diet. DIAGNOSTIC STUDIES: At the time of discharge as follows: CBC: White cell count 4.6, hematocrit 37.5, platelets 132,000. Sodium 138, potassium 3.7, BUN 11, creatinine 1.1, glucose 212 LFTs were normal. DISCHARGE INSTRUCTIONS: 1. Continue blood pressure monitoring, Freestyle Lakesha. 2. Jardiance 25 daily. 3. Tresiba 20 units subcutaneous daily. 4. Metformin 850 t.i.d. 5. B12 tablets 1 tablet daily. 6. Trulicity 0.75 mg once a week. 7. Baclofen 10 p.o. b.i.d. 8. Lorazepam 1 mg t.i.d. as needed. 9. Lipitor 40 daily. 10. Quetiapine 600 at bedtime. 11. Atropine 30 at bedtime. 12. Geodon 80 p.o. b.i.d. 13. Valium 5 mg p.o. b.i.d. 14. [place] 5 1 tablet p.o. b.i.d. 15. Lamictal 150 p.o. b.i.d. 16. Paxil 20 daily. 17. Propanol 80 p.o. b.i.d. 18. Prazosin 2 mg daily. 19. Aspirin 325 daily. 20. Keep the LDL less than 70. 21. He has polypharmacy. Most of them are given by psychiatrist. I explained the opioid-induced respiratory depression. 22. I am going to manage his hyperlipidemia and diabetes. Since he has LAD lesion less than 70%, had a flow wire done in [facility]. Continue medical management. cc: MD Dr. Richard Post
== END 2019-07-04 11:37 | disposition home or self-care (01) | DRG 639 ==
LOC: DIRADM 10:40 → 4N 11:09
PROVIDERS: ADMIT Internal Medicine; ATTEND Internal Medicine